=== PATIENT | female | born 1955 | race Caucasian/White ===

== ENCOUNTER 2017-01-16 13:42 | Outpatient (CLI) | payer OTHER ==
--- NOTE | 2017-01-18 08:50 | Mammography Report ---
DIGITAL BILATERAL SCREENING MAMMOGRAM: 01/16/2017 CLINICAL HISTORY: This is a 61-year-old female in for routine screening mammogram. Patient does hav e a family history of breast cancer. A grandmother had breast cancer at age 56. Patient does have b reast surgical history. Patient had a lumpectomy in 1975 for benign tumor in the right breast. COMPARISON: 08/06/2007, 08/23/2008, 09/05/2009, 12/13/2010, 12/05/2011, 08/05/2012 TECHNIQUE: Craniocaudad and oblique lateral views of each breast were obtained with [facility] digital mammography. FINDINGS: Heterogeneously dense breasts are noted bilaterally. A 1.3 cm benign fibroadenoma is once again seen in the upper outer quadrant of the right breast containing coarse calcifications within i t. Some additional scattered benign-appearing calcifications are noted in the breasts. There is a clust er of calcifications once again seen in the upper outer quadrant of the right breast. This has been noted as far back as 2010 without dramatic change. There is an asymmetrical density in the outer kolton f of the right breast measuring 0.8 cm in diameter. This is only noted on craniocaudad view. It was not seen on preceding exam from 08/05/2012. A comparable finding is not noted on oblique lateral vi ew. Recommend patient return for coned-down compression craniocaudad view of the right breast and a mediolateral view for further evaluation. If indicated, ultrasound could also be obtained. IMPRESSION: A 0.8 CM ASYMMETRICAL DENSITY WITH MILDLY IRREGULAR MARGINS IS NOTED IN THE OUTER HALF O F THE RIGHT BREAST. THIS FINDING IS ONLY NOTED ON CC VIEW AND WAS NOT SEEN ON PRECEDING EXAM. RECOM MEND PATIENT RETURN FOR ADDITIONAL VIEWS OF THE RIGHT BREAST AND POSSIBLY A RIGHT BREAST ULTRASOUND F OR FURTHER EVALUATION. BIRADS CATEGORY 0 - INCOMPLETE. NEEDS ADDITIONAL IMAGING EVALUATION. STANDARD QUALIFYING STATEMENTS 1. This examination was reviewed with the aid of Computer-Aided Detection (CAD). 2. A negative or benign imaging report should not delay biopsy if clinically suspicious findings are present. Consider surgical consultation if warranted. More than 5% of cancers are not identified by i maging. 3. Dense breasts may obscure an underlying neoplasm. JOB #: [id number] EXT JOB #:[id number]
== END 2017-01-16 13:43 | disposition home or self-care (01) ==
LOC: DI.N 13:42
PROVIDERS: ATTEND Family Medicine
DX: Z12.31 Encounter for screening mammogram for malignant neoplasm of breast (principal); R92.2 Inconclusive mammogram; Z80.3 Family history of malignant neoplasm of breast
CPT/HCPCS: 77067

== ENCOUNTER 2017-01-25 14:40 | Outpatient (CLI) | payer OTHER ==
--- NOTE | 2017-01-25 17:07 | Mammography Report ---
DIGITAL DIAGNOSTIC RIGHT MAMMOGRAM: 01/25/2017 CLINICAL INDICATION: Possible developing asymmetry outer right breast. TECHNIQUE: Right true lateral, spot compression, and repeat craniocaudal views. COMPARISON: 01/16/2017, 08/05/2012, 12/05/2011, 12/13/2010, 09/05/2009, 08/23/2008, 08/06/2007. FINDINGS: The right breast again demonstrates heterogeneously dense fibroglandular parenchyma. The questioned asymmetry dissipates on additional compression. No underlying mass lesion or architectura l distortion is appreciated. IMPRESSION: BENIGN FINDINGS. RECOMMENDATION: Routine annual screening unless otherwise clinically indicated. BI-RADS category 2, benign findings. STANDARD QUALIFYING STATEMENTS 1. This examination was reviewed with the aid of Computer-Aided Detection (CAD). 2. A negative or benign imaging report should not delay biopsy if clinically suspicious findings are present. Consider surgical consultation if warranted. More than 5% of cancers are not identified by i maging. 3. Dense breasts may obscure an underlying neoplasm. JOB #: [id number] EXT JOB #:[id number]
== END 2017-01-25 14:41 | disposition home or self-care (01) ==
LOC: DI 14:40
PROVIDERS: ATTEND Family Medicine
DX: N63 Unspecified lump in breast (principal)

== ENCOUNTER 2017-03-13 15:58 | Outpatient (CLI) | payer OTHER ==
--- NOTE | 2017-03-14 08:59 | MRI Report ---
EXAM: MRI LUMBAR SPINE WITHOUT CONTRAST EXAM DATE: 03/13/2017 05:18 PM. CLINICAL HISTORY: Spondylolisthesis, site unspecified. Chronic low back pain for years. Pain getting worse in the past month. Bilateral hip pain. Left-sided radiculopathy. COMPARISON: Lumbar spine plain films 03/05/2017. MRI of the lumbar spine 01/12/2013. TECHNIQUE: Multiplanar, multisequence T1-weighted and fluid-sensitive sequences of the lumbar spine f rom T12 to S1 without contrast. Other: None. FINDINGS: Spinal Cord: The conus terminates at L1-L2. The conus medullaris and cauda equina are unremarkable. T he lumbar spinal canal is adequate. Alignment: Mild, 3 mm, spondylotic spondylolisthesis is seen at L5-S1. Minimal, 1 mm, spondylolisthes is is seen at L4-L5. This is not significantly changed. Bone Marrow: Five cwy-ady-snezolw lumbar vertebral bodies are assumed. No gross fractures or bone les ions. No bone marrow edema. Note is made of a 9 mm hemangioma in the L1 vertebral body, unchanged. Disk Levels/Facets: T11-T12: Partially evaluated on sagittal series. Mild loss of disk space height. Mild patchy anterior diskogenic endplate signal change with Modic type I appearance. Minimal dorsal disk bulge. Mild to m oderate anterior and anterolateral protrusion of disk/osteophyte complex. No stenosis. T12-L1: Unremarkable. L1-L2: Unremarkable. L2-L3: Unremarkable. L3-L4: Mild thickening of the ligamentum flavum is noted. Minimal circumferential disk bulge. No sten osis. L4-L5: Moderate hypertrophic degenerative facet change is seen. Thickening of the ligamentum flavum i s noted. Minimal loss of disk space height with T2 hypointense disk signal. Mild circumferential disk bulge. Effacement of the thecal sac. No stenosis. L5-S1: Marked hypertrophic degenerative facet change is seen bilaterally. Grade 1 spondylotic spondyl olisthesis is seen. T2 hypointense disk signal is seen. Minimal dorsal and lateral disk bulge. Efface ment of posterior aspect of descending S1 nerve roots is seen greater on the left. This is secondary to degenerative facet change and thickened ligamentum flavum with spondylolisthesis. Mild right later al recess stenosis, moderate left lateral recess stenosis. This is not significantly changed. Musculature: Normal. No edema or fatty atrophy. Other: The partially visualized retroperitoneum is unremarkable. IMPRESSION: 1. L5-S1: Marked degenerative facet change with mild spondylolisthesis. There is underlying effacemen t and mass effect on descending S1 nerve roots. Right mild lateral recess stenosis. Left moderate lat eral recess stenosis. 2. L4-L5: Moderate degenerative facet and mild degenerative disk change. No stenosis. Comment: The following findings are so common in adults without low back pain that while we report th eir presence, they must be interpreted with caution and in the context of the clinical situation. (Re ella Hernandez et al, Spine 2001) Prevalence of findings in patients without low back pain: Disk degeneration (any evidence): 92% Disk desiccation/T2 signal loss: 83% Disk height loss: 56% Disk bulge: 64% Disk protrusion: 32% Annular tear/high intensity zone: 38% [facility] Referring Provider Line: [phone] SITE ID: [id number]
== END 2017-03-13 15:59 | disposition home or self-care (01) ==
LOC: DI 15:58
PROVIDERS: ATTEND Family Medicine
DX: M47.896 Other spondylosis, lumbar region (principal); M51.36 Other intervertebral disc degeneration, lumbar region; M47.897 Other spondylosis, lumbosacral region; M43.17 Spondylolisthesis, lumbosacral region
CPT/HCPCS: 72148

== ENCOUNTER 2018-02-10 14:38 | Outpatient (CLI) | payer OTHER ==
--- NOTE | 2018-02-12 12:08 | Mammography Report ---
Procedure Date: 02/10/2018 Accession Number: [id number] / [id number] Procedure: CRISSY - Screening Mammo Dig Bilat CPT Code: FULL RESULT: EXAM: Screening Mammo Dig Bilat DATE: 02/10/2018 2:59 PM CLINICAL HISTORY: Remote history of right breast surgery for benign tumor. TECHNIQUE: Bilateral CC and MLO views were obtained. COMPARISON: 01/25/17, 01/16/2017, 08/05/2012, 12/05/2011, 12/13/2010, 09/05/2009 FINDINGS: The breast tissue is heterogeneously dense . No suspicious masses, clustered microcalcifications, skin thickening, or regions of architectural distortion are identified. Scattered benign-appearing calcifications in both breasts have been present as remotely as 2011. No significant new findings. IMPRESSION: Benign findings RECOMMENDATION: Routine annual screening unless otherwise clinically indicated. BIRADS CATEGORY 2: Benign findings STANDARD QUALIFYING STATEMENTS: 1. This examination was reviewed with the aid of Computer-Aided Detection (CAD). 2. A negative or benign imaging report should not delay biopsy if clinically suspicious findings are present. Consider surgical consultation if warrented. More than 5% of cancers are not identified by imaging. 3. Dense breasts may obscure an underlying neoplasm.
== END 2018-02-10 14:39 | disposition home or self-care (01) ==
LOC: DI 14:38
PROVIDERS: ATTEND Family Medicine
DX: Z12.31 Encounter for screening mammogram for malignant neoplasm of breast (principal)
CPT/HCPCS: 77067

== ENCOUNTER 2018-06-06 08:00 | Outpatient (CLI) | payer OTHER | END 2018-06-06 08:01 | disposition home or self-care (01) | LOC: LAB.R 08:00 | PROVIDERS: ATTEND Family Medicine | DX: R30.0 Dysuria (principal) | CPT/HCPCS: 87086 ==

== ENCOUNTER 2018-12-04 12:21 | Outpatient (CLI) | payer OTHER ==
[2018-12-04 19:21] LABS: BASOPHILS # (AUTO) 0.1 10^3/uL (0.0-0.1); BASOPHILS % (AUTO) 0.9 %; EOSINOPHILS # (AUTO) 0.2 10^3/uL (0.0-0.7); EOSINOPHILS % (AUTO) 3.1 %; HGB - HEMOGLOBIN 12.4 g/dL (12.0-16.0); LYMPHOCYTES # (AUTO) 2.4 10^3/uL (1.5-3.5); MEAN CORPUSCULAR HEMOGLOBIN 30.6 pg (27.0-31.0); MEAN CORPUSCULAR VOLUME 92.7 fL (81.0-99.0); MEAN PLATELET VOLUME 9.4 fL (7.9-10.8); MONOCYTES # (AUTO) 0.5 10^3/uL (0.0-1.0); MONOCYTES % (AUTO) 8.2 %; NEUTROPHILS # (AUTO) 3.1 10^3/uL (1.5-6.6); NEUTROPHILS % (AUTO) 49.8 %; PLT - PLATELET COUNT 265 10^3/uL (130-450); RED BLOOD COUNT 4.07 10^6/uL (4.20-5.40); RED CELL DISTRIBUTION WIDTH 13.7 % (12.0-15.0); WHITE BLOOD COUNT 6.2 x10^3/uL (4.8-10.8)
[2018-12-04 20:57] LABS: ALBUMIN 4.7 g/dL (3.2-5.5); ALBUMIN/GLOBULIN RATIO 1.5 (1.0-2.2); ALKALINE PHOSPHATASE 51 IU/L (42-121); ALT ALANINE AMINOTRANSFERASE 17 IU/L (10-60); AST ASPARTATE AMINOTRANSFERASE 23 IU/L (10-42); BILIRUBIN,TOTAL 0.5 mg/dL (0.2-1.0); BUN - BLOOD UREA NITROGEN 15 mg/dL (6-20); CALCIUM 9.9 mg/dL (8.5-10.3); CARBON DIOXIDE - CO2 28 mmol/L (21-32); CHLORIDE 104 mmol/L (101-111); CHOL/HDL RATIO 3.3 (<4.4); CHOLESTEROL 253 mg/dL; CREATININE 0.5 mg/dL (0.4-1.0); GFR - MDRD 124 (>89); GLUCOSE 82 mg/dL (70-100); HDL CHOLESTEROL 76 mg/dL; LDL CHOLESTEROL,CALCULATED 148 mg/dL; LDL/HDL RATIO 1.9 (<4.4); SODIUM 139 mmol/L (135-145); TOTAL PROTEIN 7.8 g/dL (6.7-8.2); VLDL CHOLESTEROL 29 mg/dL
[2018-12-04 21:23] LABS: HB2 TOTAL 13.6 g/dL; HEMOGLOBIN A1C 0.53 g/dL; HEMOGLOBIN A1C % 5.7 % (4.6-6.2)
== END 2018-12-04 12:22 | disposition home or self-care (01) ==
LOC: LAB.WCP 12:21
PROVIDERS: ATTEND Family Medicine
DX: Z00.00 Encounter for general adult medical examination without abnormal findings (principal); I10 Essential (primary) hypertension; Z13.220 Encounter for screening for lipoid disorders
CPT/HCPCS: 36415; 80050; 80061; 83036; 83721

== ENCOUNTER 2019-05-13 08:00 | Outpatient (CLI) | payer MEDICARE, OTHER ==
--- NOTE | 2019-05-13 16:00 | XRAY Report ---
Reason: CHRONIC COUGH Procedure Date: 05/13/2019 Accession Number: [id number] / [id number] Procedure: WCP - Chest 2 View X-Ray CPT Code: 40330 FULL RESULT: EXAM: CHEST RADIOGRAPHY EXAM DATE: 05/13/2019 03:00 PM. CLINICAL HISTORY: CHRONIC COUGH. COMPARISON: RIBS 2 VIEW RT 04/15/2018 3:13 PM CERVICAL SPINE 2 VIEW 05/06/2017 2:46 PM. TECHNIQUE: 2 views. FINDINGS: Lungs/Pleura: Faint nodular density left apex adjacent to the second anterior rib. No other focal opacities evident. No pleural effusion. No pneumothorax. Normal volumes. Mediastinum: Heart and mediastinal contours are unremarkable. Other: Surgical clips right upper quadrant. Postsurgical changes in the spine. IMPRESSION: Faint nodular density left apex. Suggest apical lordotic projection. Otherwise clear lungs. [facility]
== END 2019-05-13 23:59 | disposition home or self-care (01) ==
LOC: DI.WCP 08:00 → EDSTATUS 13:39 → DI.WCP 23:59
PROVIDERS: ATTEND Family Medicine
DX: R91.8 Other nonspecific abnormal finding of lung field (principal)
CPT/HCPCS: 71046

== ENCOUNTER 2019-05-14 14:12 | Outpatient (CLI) | payer MEDICARE, OTHER ==
--- NOTE | 2019-05-14 16:48 | XRAY Report ---
Reason: LEFT UPPER LOBE PULMONARY NODULE Procedure Date: 05/14/2019 Accession Number: [id number] / [id number] Procedure: WCP - Chest 1 View X-Ray CPT Code: 13913 FULL RESULT: EXAM: CHEST RADIOGRAPHY EXAM DATE: 05/14/2019 02:12 PM. CLINICAL HISTORY: LEFT UPPER LOBE PULMONARY NODULE. COMPARISON: CHEST 2 VIEW 05/13/2019 2:42 PM. TECHNIQUE: 1 apical lordotic view. FINDINGS: Persistent faint 1 cm nodular density left apex. Lungs otherwise clear. Suggest noncontrast chest CT for further evaluation. IMPRESSION: Persistent left apical nodule. Suggest noncontrast chest CT.. [facility]
== END 2019-05-14 23:59 | disposition home or self-care (01) ==
LOC: DI.WCP 14:12
PROVIDERS: ATTEND Family Medicine
DX: R91.1 Solitary pulmonary nodule (principal)
CPT/HCPCS: 71045

== ENCOUNTER 2019-05-15 15:00 | Outpatient (CLI) | payer MEDICARE, OTHER ==
--- NOTE | 2019-05-15 17:12 | CT Report ---
Reason: PULMONARY NODULE LEFT UPPER LOBE Procedure Date: 05/15/2019 Accession Number: [id number] / [id number] Procedure: CT - CHEST WO CPT Code: FULL RESULT: EXAM: CT CHEST EXAM DATE: 05/15/2019 04:00 PM. CLINICAL HISTORY: Pulmonary nodule COMPARISONS: CHEST 1 VIEW 05/14/2019 1:54 PM. TECHNIQUE: Routine helical CT imaging was performed through the chest. IV contrast: None. Reconstructions: Coronal and sagittal. In accordance with CT protocol optimization, one or more of the following dose reduction techniques were utilized for this exam: automated exposure control, adjustment of mA and/or KV based on patient size, or use of iterative reconstructive technique. FINDINGS: Lungs/Pleura: There is no consolidation or effusion. No suspicious noncalcified nodules are seen. There is no evidence of subpleural reticulation or architectural distortion. No central airway abnormalities. No pneumothorax. Mediastinum: Normal. No adenopathy or masses. The heart and great vessels are normal. Bones: Unremarkable. Visualized Abdomen: The gallbladder is surgically absent. There is fatty replacement of the pancreas. No acute abnormalities are seen. Other: None. IMPRESSION: 1. No acute or chronic pulmonary CT process. 2. No CT evidence of left upper lobe nodule. 3. Normal heart size. [facility] The call report notification system was initiated by Dr. Munir Perkins at 05:11 PM on 05/15/2019.
== END 2019-05-15 15:01 | disposition home or self-care (01) ==
LOC: DI 15:00
PROVIDERS: ATTEND Family Medicine
DX: R91.1 Solitary pulmonary nodule (principal)
CPT/HCPCS: 71250

== ENCOUNTER 2019-07-14 14:54 | Outpatient (CLI) | payer MEDICARE, OTHER ==
--- NOTE | 2019-07-15 14:31 | XRAY Report ---
Reason: ARTHRITIS,LT KNEE,PATELLO-FEMORAL SYNDROME Procedure Date: 07/14/2019 Accession Number: [id number] / [id number] Procedure: XR - Knee 3 View LT CPT Code: Final Report FULL RESULT: EXAM: LEFT KNEE RADIOGRAPHY EXAM DATE: 07/14/2019 03:11 PM HISTORY: Arthritis, lt KNEE,PATELLO-FEMORAL SYNDROME COMPARISON: None TECHNIQUE: AP, lateral and Merchant, 3 views including weightbearing FINDINGS: Moderate medial tibiofemoral compartment narrowing seen along with moderate to large medial osteophyte formation. There also is evidence of subchondral sclerosis medially. Lateral joint space is preserved. Mild spurring noted at the patellofemoral joint laterally and moderate to large spurring seen medially. Trochlear facet ratio is greater than 50%. Medial patellar facet is diminutive. Small joint effusion. Normal soft tissues. 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 Mild to moderate patellofemoral osteoarthritis, greater medially. [facility]
== END 2019-07-14 14:55 | disposition home or self-care (01) ==
LOC: DI 14:54
PROVIDERS: ATTEND Family Medicine
DX: M17.12 Unilateral primary osteoarthritis, left knee (principal)

== ENCOUNTER 2020-01-07 08:00 | Outpatient (CLI) | payer MEDICARE, OTHER ==
[2020-01-07 13:26] LABS: BASOPHILS % (AUTO) 0.4 %; EOSINOPHILS # (AUTO) 0.2 10^3/uL (0.0-0.7); EOSINOPHILS % (AUTO) 2.4 %; HGB - HEMOGLOBIN 11.7 g/dL (12.0-16.0); LYMPHOCYTES # (AUTO) 2.4 10^3/uL (1.5-3.5); LYMPHOCYTES % (AUTO) 36.3 %; MEAN CORPUSCULAR HEMOGLOBIN 30.8 pg (27.0-31.0); MEAN CORPUSCULAR HGB CONC 32.9 g/dL (32.0-36.0); MEAN CORPUSCULAR VOLUME 93.7 fL (81.0-99.0); MEAN PLATELET VOLUME 10.8 fL (7.9-10.8); MONOCYTES # (AUTO) 0.5 10^3/uL (0.0-1.0); NEUTROPHILS # (AUTO) 3.6 10^3/uL (1.5-6.6); NEUTROPHILS % (AUTO) 53.5 %; PLT - PLATELET COUNT 282 10^3/uL (130-450); RED CELL DISTRIBUTION WIDTH 12.7 % (12.0-15.0); WHITE BLOOD COUNT 6.7 x10^3/uL (4.8-10.8)
[2020-01-07 13:38] LABS: ALBUMIN 4.2 g/dL (3.2-5.5); ALBUMIN/GLOBULIN RATIO 1.5 (1.0-2.2); ALKALINE PHOSPHATASE 60 IU/L (42-121); ALT ALANINE AMINOTRANSFERASE 17 IU/L (10-60); AST ASPARTATE AMINOTRANSFERASE 19 IU/L (10-42); BILIRUBIN,TOTAL 0.7 mg/dL (0.2-1.0); BUN - BLOOD UREA NITROGEN 19 mg/dL (6-20); CALCIUM 9.5 mg/dL (8.5-10.3); CARBON DIOXIDE - CO2 27 mmol/L (21-32); CHLORIDE 102 mmol/L (101-111); CHOL/HDL RATIO 3.6 (<4.4); CHOLESTEROL 243 mg/dL; CREATININE 0.7 mg/dL (0.4-1.0); GLUCOSE 99 mg/dL (70-100); HDL CHOLESTEROL 68 mg/dL; LDL CHOLESTEROL,CALCULATED 157 mg/dL; LDL/HDL RATIO 2.3 (<4.4); SODIUM 136 mmol/L (135-145); VLDL CHOLESTEROL 18 mg/dL
== END 2020-01-07 23:59 | disposition home or self-care (01) ==
LOC: LAB.WCP 08:00
PROVIDERS: ATTEND Registered Nurse
DX: I10 Essential (primary) hypertension (principal); K21.9 Gastro-esophageal reflux disease without esophagitis; E66.9 Obesity, unspecified
CPT/HCPCS: 36415; 80053; 80061; 83721; 84443; 85025

== ENCOUNTER 2020-01-17 07:00 | Outpatient (CLI) | payer MEDICARE, OTHER | END 2020-01-17 23:59 | disposition home or self-care (01) | LOC: LAB.R 07:00 | PROVIDERS: ATTEND Registered Nurse | DX: D64.9 Anemia, unspecified (principal) | CPT/HCPCS: 82274 ==

== ENCOUNTER 2020-02-25 09:55 | Day surgery (SDC) | payer MEDICARE, OTHER ==
[2020-02-25] MEDS ORDERED: MIDAZOLAM 2 MG/2 ML VIAL IVP ONE (09:56)
[2020-02-25] MEDS ORDERED: fentaNYL 250 MCG/5 ML VIAL IVP ONE (09:56)
[2020-02-25] MEDS ORDERED: ONDANSETRON 4 MG/2 ML VIAL IVP ONE (09:56)
[2020-02-25] MEDS ORDERED: LACTATED RINGERS 1,000 ML IV ONE (10:26)
[2020-02-25] MEDS ORDERED: LIDO GARGLE 30 ML BOTTLE ONE (12:24)
[2020-02-25] MEDS ORDERED: BENZOCAINE/TETRACAINE/BUTAMBEN 20 GM TOP ONE (12:46)
[2020-02-25] MEDS ORDERED: LIDO GARGLE 30 ML BOTTLE TOP ONE (12:46)
[2020-02-25 13:48] VITALS: BP 124/67
== END 2020-02-25 09:56 | disposition home or self-care (01) ==
LOC: SDS 09:55
PROVIDERS: ATTEND Surgery
PROC: 0DB68ZX Excision of Stomach, Via Natural or Artificial Opening Endoscopic, Diagnostic (ICD-10-PCS; 2020-02-25)
PROC: 0DB48ZX Excision of Esophagogastric Junction, Via Natural or Artificial Opening Endoscopic, Diagnostic (ICD-10-PCS; 2020-02-25)
PROC: 0DBE8ZX Excision of Large Intestine, Via Natural or Artificial Opening Endoscopic, Diagnostic (ICD-10-PCS; principal; 2020-02-25 11:45)
PROC: 0DB98ZX Excision of Duodenum, Via Natural or Artificial Opening Endoscopic, Diagnostic (ICD-10-PCS; 2020-02-25 11:45)
DX: R10.13 Epigastric pain (principal); K64.8 Other hemorrhoids; K57.30 Diverticulosis of large intestine without perforation or abscess without bleeding; K21.9 Gastro-esophageal reflux disease without esophagitis; R19.7 Diarrhea, unspecified; R10.32 Left lower quadrant pain; K59.00 Constipation, unspecified; I10 Essential (primary) hypertension; E66.9 Obesity, unspecified; Z68.32 Body mass index [BMI] 32.0-32.9, adult
CPT/HCPCS: 43239; 45380; A9270; J3010; J7120

== ENCOUNTER 2020-03-17 13:36 | Outpatient (CLI) | payer MEDICARE, OTHER ==
[2020-03-17 14:40] VITALS: BP 130/70
--- NOTE | 2020-03-17 14:40 | SLEEP CARE CONSULTATION ---
Information from patient questionnaire entered by Alyson Goncalves. I have reviewed and concur with the information entered by Alyson Goncalves. This document represents the service I personally performed and the decisions made by me, Gabriella Lloyd ARNP. History of Present Illness Service Date and Time: 03/17/2020 1336 Reason for Visit: New patient Chief Complaint: reports: Unrefreshed sleep, Snoring, Excessive daytime sleepiness, Fatigue, Frequent awakenings at night. denies: Insomnia, Observed pauses in breathing Duration of Symptoms: years Usual bedtime: 2129 Time it takes to fall asleep: 6-10 minutes Snores at night: Yes Observed to quit breathing while asleep: No Sleeps alone due to snoring: No (single) Number of times waking at night: 5-8+ Reasons for waking at night: reports: Snoring, Pain, Bathroom. denies: Choking, Gasping for air Toss, Turn, or Twitch while sleeping: Yes Recalls having dreams: Yes (sometimes) Usually gets out of bed at: 0400; shift changing to be at work at 3 AM; normal shift is 5 AM Feels refreshed in the morning: No Morning headache: Yes (couple hours to all day; gets migraines too) Sleepy or fatigued during the day: Yes Ever fallen asleep while driving: Yes Takes day naps: Yes (many times after work 1-2 hours at a time) Dreams during day naps: No Prior sleep studies: Yes Year and Where: probably 5 years ago and diagnosed with sleep apnea; [facility] [place] Additional HPI information: She did have a sleep study done about 5 years ago and was diagnosed with FRANNY. They started her on CPAP therapy. The mask was too "big and clunky", the hose got in the way, and she had trouble with side sleeping with the mask. She just stopped using it. She did try to follow up but was struggling with alcoholism with drug addiction (Vicodin and Tramadol taken for chronic back pain) and this interfered with her treatment and follow up. She has been clean and sober now for 1 a year. She continues to have back pain and knee pain which is being managed with PRN Aleve. She works for [employer] and usually has to work at 5 AM, she averages 5-6 hours of sleep a night with multiple awakenings. She will be having to go to work at 3 AM soon, getting up at 2 AM. She states she is always fatigued and does take a 1-2 hour nap after getting home from work. - Parasomnia Symptoms Ever been unable to move upon waking from sleep: No Walks in sleep: No Talks in sleep: No Ever acted out dreams in sleep: No Ever felt weak in the knees when startled or emotional: No Bothered by creepy, crawly, restless sensations in legs: Yes (gets when awake as well, jerking movements of legs) Problems with memory or concentration: No Subjective Initial [place] Sleepiness Scale score: 10 Past Medical History Past Medical History: reports: Hypertension, Arthritis, Asthma (mild), GERD, Other (chronic pain in back and left knee). denies: Claustrophobia, Congestive Heart Failure, Diabetes, Stroke, Coronary Heart Disease, Arrythmia, Anemia, Anxiety, Depression, Mood disorder Social History The patient's occupation is a [employer]AM. Patient is Single and lives in [place]. Have you smoked in the past 12 months: No Alcohol use: No Alcohol amount and frequency: clean and sober for last year Caffeine use: Yes Caffeine amount and frequency: 1 cup Family History Family history of sleep disordered breathing: Yes Family Hx Sleep Apnea: Father: Snoring, Sibling: Snoring Allergies and Home Medications Drug allergies reviewed: Yes (codiene) Home medication list reviewed: Yes Allergy and home medication list: Losartan potassium nadolol methocarbamol Aleve, prn Advair disc Review of Systems Weight gain over past 5 years: 20 Cardiovascular: reports: high blood pressure, leg or foot swelling. denies: palpitations, chest pain, irregular heart rate or pulse, have to sleep sitting up Respiratory: denies: shortness of breath, wheeze, chronic cough Gastrointestinal: reports: heartburn (had endoscopy 2 weeks ago, starting prilosec this week), nausea, diarrhea, abdominal pain. denies: difficulty swallowing Urinary: denies: incontinence, frequency, urgency, impotence, other Neurological: reports: headaches, gait or balance problems. denies: seizure, head trauma Psychiatric: denies: Attention Deficit Hyperactivity, anxiety, depression, mood disorder, claustrophobia Ear/Nose/Throat: reports: nasal congestion, sinus problems (allergies; sinus headaches a lot), dry mouth/throat (most mornings; drink liquids and this helps), tonsillectomy. denies: nose bleeds, hoarseness, injury to nose, wisdom teeth removed Endocrine: reports: sluggishness, too hot or cold. denies: thyroid disease, excessive thirst, increased appetite Musculoskeletal: reports: joint pain, back pain Immunologic: reports: sneezing, allergies to food or environment (seasonal) Physical Exam Blood Pressure: 130/70 Cuff size: long Heart Rate: 100 (patient feeling nervous) O2 Saturation: 99 Height: 5 ft 7 in Weight: 201 lb 12.8 oz Body Mass Index: 31.6 BMI Classification: Obese Neck circumference: 15 HEENT: No craniofacial malformation Nostrils: patent to airflow Turbinates: normal Septum: midline Mouth and throat: normal Soft palate: normal Hard palate: normal Uvula: normal Uvula visualization: 50% Mallampati Class II Tongue: normal in size Tonsils: absent bilaterally Chin and jaw: normal size and position Neck: normal w/o lymphadenopathy or thyromegaly Heart: regular rate and rhythm Lungs: clear bilaterally Impression and Plan 1. Obstructive Sleep Apnea-Hypopnea Syndrome, as previously diagnosed. She had difficulty with ill fitting mask problems as well as was struggling with addictions to alcohol and drugs which caused her to stop using the CPAP. She has since become clean and sober for the last year and needs a reevaluation before restarting of therapy. She continues to snore loudly waking herself up, she has morning headaches often, frequent awakening during the night, unrefreshed sleep, and excessive daytime sleepiness. 1. Obesity. We reviewed that a narrow oropharynx and obesity are common predisposing factors for obstructive sleep apnea-hypopnea syndrome. Patient BMI of 31.6 with 20 pound weight gain in last 5 years. Obesity increases the risk of apnea, CPAP pressure requirements and overall health risks especially cardi ovascular and diabetes. Thus patient is advised to lose weight. The BMI chart was reviewed. I recommend proceeding to polysomnography to confirm the diagnosis and to assess severity. I informed the patient of what the sleep studies involve and after some discussion, obtained agreement to proceed. The pathophysiology of obstructive sleep apnea-hypopnea syndrome was discussed with the patient and health risks of cardiovascular and cerebrovascular disease if not treated. Risks of drowsy driving discussed in detail and patient advised to avoid long distance driving and to chain puller at the first sign of drowsiness. Patient agreed to plan. [facility] drowsy driving brochure given. * Schedule polysomnography. * Avoid long distance driving or driving when feeling sleepy. * Attempt to lose weight. * Review instructions provided by trained office staff on how to prepare for the sleep study. * Return for follow-up after sleep study completed to discuss result and initiate therapy if needed. Visit Type: In Office Provider Statement: I spent 100% of the Face to Face Visit with the patient with greater than 50% spent counseling the patient and coordination of care.
== END 2020-03-17 13:37 | disposition home or self-care (01) ==
LOC: SC 13:36
PROVIDERS: ATTEND Nurse Practitioner Family
DX: G47.33 Obstructive sleep apnea (adult) (pediatric) (principal); E66.9 Obesity, unspecified; Z68.31 Body mass index [BMI] 31.0-31.9, adult
CPT/HCPCS: 99204; G0463; 99212

== ENCOUNTER 2020-04-12 14:36 | Emergency (ER) | payer MEDICARE, OTHER ==
--- NOTE | 2020-04-12 15:02 | ED Physician Documentation ---
History of Present Illness - Stated complaint Stated Complaint: FEVER/STOMACH PX - Chief complaint Chief Complaint: Abd Pain - History obtained from History obtained from: Patient - History of Present Illness Timing: Prior to arrival, How many hours ago (12) Pain level max: 8 Pain level now: 5 - Additonal information Additional information: 65-year-old female presents to the emergency department for chief complaint of left lower quadrant abdominal pain. She reports that she was woken up last night with the abdominal pain and this morning she began having diarrhea. She reports 4 watery stools today all nonbloody. Last month she did have a colonoscopy completed and she reports to me that she was diagnosed with diverticulosis. She has no history of diverticulitis. She also reports that this afternoon she felt sweaty and clammy and took her temperature and she was 100.2. She has had no vomiting but she does endorse nausea. No cough or congestion. Denies chest pain or shortness of breath. Past medical history includes hypertension for which she takes losartan and nadolol. Surgical history includes total abdominal hysterectomy and open cholecystectomy. Review of Systems Constitutional: reports: Fever, Chills. denies: Myalgias Eyes: reports: Loss of vision, Decreased vision Nose: reports: Rhinorrhea / runny nose. denies: Congestion, Epistaxis Throat: denies: Dental pain / toothache Cardiac: denies: Chest pain / pressure, Palpitations Respiratory: denies: Dyspnea GI: reports: Abdominal Pain, Nausea, Diarrhea. denies: Vomiting, Constipation, Hematemesis, Bloody / black stool : denies: Dysuria, Frequency, Hesitancy, Unable to Void, Hematuria Skin: denies: Rash, Lesions Musculoskeletal: denies: Neck pain, Back pain Neurologic: denies: Generalized weakness, Focal weakness, Numbness, Syncope, Seizure, Headache, Head injury Psychiatric: denies: Depressed, Suicidal PD PAST MEDICAL HISTORY - Past Medical History Cardiovascular: Hypertension Respiratory: None Endocrine/Autoimmune: None GI: GERD : None HEENT: None Psych: None Musculoskeletal: Osteoarthritis, Chronic back pain Derm: None - Past Surgical History General: Cholecystectomy, Colonoscopy /YARD ASSOCIATE: Hysterectomy, Other - Present Medications Home Medications: Ambulatory Orders Medication Instructions Recorded Confirmed Losartan [Cozaar] 75 mg PO DAILY 12/12/15 12/12/15 Nadolol 20 mg PO 02/24/20 methocarbamoL [Methocarbamol] 750 mg PO 02/24/20 Ondansetron Odt [Zofran] 4 mg TL Q6H PRN #10 tablet 04/12/20 - Allergies Allergies/Adverse Reactions: Allergies Allergy/AdvReac Type Severity Reaction Status Date / Time codeine AdvReac Rash Verified 12/12/15 14:32 PD ED PE NORMAL - General General: Alert and oriented X 3, No acute distress, Well developed/nourished - HEENT HEENT: Atraumatic, PERRL, EOMI, Moist mucous membranes - Neck Neck: Supple, no meningeal sign, No adenopathy - Cardiac Cardiac: RRR, No murmur, Strong equal pulses - Respiratory Respiratory: No respiratory distress, Clear bilaterally - Abdomen Abdomen: Normal bowel sounds, Soft, Non distended. 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, No motor deficit, No sensory deficit Results - Vitals Vitals: Vital Signs - 24 hr 04/12/20 04/12/20 14:44 14:59 Temperature 37.0 C 37.4 C Heart Rate 95 88 Respiratory 18 14 Rate Blood Pressure 158/60 H 169/81 H O2 Saturation 95 97 Oxygen O2 Source Room air - Labs Labs: Laboratory Tests 04/12/20 04/12/20 04/12/20 14:55 14:55 15:10 WBC 9.2 RBC 3.90 L Hgb 12.5 Hct 36.2 L MCV 92.8 MCH 32.1 H MCHC 34.5 RDW 12.5 Plt Count 231 MPV 10.1 Neut # (Auto) 7.6 H Lymph # (Auto) 1.1 L [place] # (Auto) 0.5 Eos # (Auto) 0.1 Baso # (Auto) 0.0 Absolute Nucleated RBC 0.00 Nucleated RBC % 0.0 Sodium 133 L Potassium 3.9 Chloride 98 L Carbon Dioxide 25 Anion Gap 10.0 BUN 11 Creatinine 0.5 Estimated GFR (MDRD) 123 Glucose 103 H Calcium 9.1 Total Bilirubin 0.8 AST 19 ALT 17 Alkaline Phosphatase 57 Total Protein 7.4 Albumin 4.4 Globulin 3.0 Albumin/Globulin Ratio 1.5 Lipase 44 Urine Color YELLOW Urine Clarity CLEAR Urine pH 5.5 Ur Specific [place] <=1.005 Urine Protein NEGATIVE Urine Glucose (UA) NEGATIVE Urine Ketones NEGATIVE Urine Occult Blood NEGATIVE Urine Nitrite NEGATIVE Urine Bilirubin NEGATIVE Urine Urobilinogen 0.2 (NORMAL) Ur Leukocyte Esterase TRACE H Urine RBC NONE Urine WBC 4-5 Ur Squamous Epith Cells NONE SEEN Urine Bacteria None Seen Urine Mucus Few Strands Ur Microscopic Review INDICATED Urine Culture Comments INDICATED - Rads (name of study) CT abd Radiology: Final report received (Fluid-filled small bowel loops consistent with gastroenteritis. Trace amount of free fluid within the pelvis, presumably reactive. Normal appendix.) PD MEDICAL DECISION MAKING - ED course Complexity details: reviewed results, re-evaluated patient, considered differential, d/w patient ED course: 65-year-old female presented to the emergency department for evaluation of left lower quadrant abdominal pain and diarrhea. She did report a home fever of 100.2. - She had reported a history of diverticulosis and given the fever and diarrhea we proceeded with CT scanning to rule out acute diverticulitis. The CT scan shows fluid-filled small bowel loops most consistent with gastroenteritis. This also fits the picture of diarrhea and her fevers. - On her laboratory findings there is no leukocytosis. Her urine shows no signs of infection. - She was given some Zofran and Toradol in the clinic which helped resolve her nausea and her pain. - At this time she appears very well and is heme hemodynamically stable and she does request to be discharged home. We did discuss routine treatment of gastroenteritis to include fluids broths and clear liquids at home. Emergent return precautions were discussed for fevers that persist, failure of abdominal pain to resolve, any bloody diarrhea or worsening symptoms. Departure - Departure Disposition: Home, Self Care Clinical Impression: Diarrhea Qualifiers: Diarrhea type: unspecified type Qualified Code(s): R19.7 - Diarrhea, unspecified Fever Qualifiers: Fever type: unspecified Qualified Code(s): R50.9 - Fever, unspecified Abdominal pain Qualifiers: Abdominal location: lower abdomen, unspecified Qualified Code(s): R10.30 - Lower abdominal pain, unspecified Condition: Stable Record reviewed to determine appropriate education?: Yes Instructions: Gastroenteritis Viral Ch Follow-Up: Mark Bell MD [Primary Care Provider] - Prescriptions: Ondansetron Odt [Zofran] 4 mg TL Q6H PRN #10 tablet PRN Reason: Nausea / Vomiting Comments: Lilian the CT scan of your abdomen showed that you most likely have gastroenteritis or the mild stomach flu. Reassuringly it did not show signs of appendicitis or diverticulitis. At this time I would recommend that you drink plenty of fluids at home. I recommend soups, broths, water or electrolyte drinks mixed 50-50 with water. If at any time you feel that your symptoms are worsening, your fevers persist, you have bloody diarrhea or feel that your are not improving in any way then please return to the emergency department for a second look
[2020-04-12 15:04] LABS: BASOPHILS % (AUTO) 0.3 %; EOSINOPHILS # (AUTO) 0.1 10^3/uL (0.0-0.7); EOSINOPHILS % (AUTO) 0.7 %; HGB - HEMOGLOBIN 12.5 g/dL (12.0-16.0); LYMPHOCYTES # (AUTO) 1.1 10^3/uL (1.5-3.5); LYMPHOCYTES % (AUTO) 11.5 %; MEAN CORPUSCULAR HEMOGLOBIN 32.1 pg (27.0-31.0); MEAN CORPUSCULAR HGB CONC 34.5 g/dL (32.0-36.0); MEAN CORPUSCULAR VOLUME 92.8 fL (81.0-99.0); MEAN PLATELET VOLUME 10.1 fL (7.9-10.8); MONOCYTES # (AUTO) 0.5 10^3/uL (0.0-1.0); MONOCYTES % (AUTO) 5.5 %; NEUTROPHILS # (AUTO) 7.6 10^3/uL (1.5-6.6); NEUTROPHILS % (AUTO) 81.8 %; PLT - PLATELET COUNT 231 10^3/uL (130-450); RED CELL DISTRIBUTION WIDTH 12.5 % (12.0-15.0); WHITE BLOOD COUNT 9.2 x10^3/uL (4.8-10.8)
[2020-04-12] MEDS: KETOROLAC 30 MG/ML VIAL IVP STA (15:07)
[2020-04-12] MEDS: ONDANSETRON 4 MG/2 ML VIAL IVP STA (15:07)
[2020-04-12] MEDS: SODIUM CHLORIDE 0.9% 1,000 ML IV STA (15:07)
[2020-04-12 15:14] LABS: BILIRUBIN,URINE NEGATIVE (NEGATIVE); GLUCOSE, URINE (UA) NEGATIVE (NEGATIVE); KETONES,URINE (UA) NEGATIVE (NEGATIVE); LEUKOCYTE ESTERASE, URINE TRACE (NEGATIVE); NITRITE,URINE NEGATIVE (NEGATIVE); OCCULT BLOOD,URINE NEGATIVE (NEGATIVE); PH,URINE 5.5 PH (5.0-7.5); PROTEIN,URINE NEGATIVE (NEGATIVE); UROBILINOGEN,URINE 0.2 (NORMAL) E.U./dL (NORMAL)
[2020-04-12 15:16] LABS: CLARITY,URINE CLEAR (CLEAR)
[2020-04-12 15:22] LABS: ALBUMIN 4.4 g/dL (3.2-5.5); ALBUMIN/GLOBULIN RATIO 1.5 (1.0-2.2); BILIRUBIN,TOTAL 0.8 mg/dL (0.2-1.0); CALCIUM 9.1 mg/dL (8.5-10.3); CREATININE 0.5 mg/dL (0.4-1.0); TOTAL PROTEIN 7.4 g/dL (6.7-8.2)
[2020-04-12] MEDS ORDERED: IOVERSOL 320 100 ML VIAL IVP ONE (15:25)
[2020-04-12 15:28] LABS: BACTERIA,URINE None Seen /HPF (None Seen); SQUAMOUS EPITHELIAL CELL,UR NONE SEEN (<= Few)
[2020-04-12 15:29] LABS: MUCUS,URINE Few Strands
--- NOTE | 2020-04-12 15:54 | CT Report ---
PROCEDURE: Abdomen/Pelvis W INDICATIONS: LLQ pain; hx of diverticulosis CONTRAST: IV CONTRAST: Optiray 320 ml: 100 PO CONTRAST: *NO PO CONTRAST TECHNIQUE: After the administration of IV contrast, 5 mm thick sections acquired from the diaphragms to the symp hysis. 5 mm thick coronal and sagittal reformats were acquired. For radiation dose reduction, the f ollowing was used: automated exposure control, adjustment of mA and/or kV according to patient size. COMPARISON: None. FINDINGS: Image quality: Excellent. ABDOMEN: Lung bases: Lung bases are clear. Heart size is normal. Solid organs: Liver and spleen are normal in size and enhancement. Gallbladder is surgically absent Biliary system is non dilated. Pancreas demonstrates fatty atrophy of the head and neck, and other erickson enhances normally. No adrenal nodules. Kidneys demonstrate normal size and enhancement, withou t hydronephrosis. Peritoneum and bowel: Small hiatal hernia. Bowel loops demonstrate normal wall thickness and caliber . There are multiple fluid-filled small bowel loops present. Appendix is within normal limits no evid ence of appendicitis. No pneumoperitoneum. Trace free fluid within the pelvis. Nodes and vessels: No retroperitoneal or mesenteric adenopathy by size criteria. Aorta and inferior vena cava are normal in size. Miscellaneous: No ventral hernias. PELVIS: Genitourinary: Bladder wall thickness is normal. Miscellaneous: No inguinal hernias or adenopathy. Bones: No suspicious bony lesions. No vertebral body compression fractures. L4 S1 fusion hardware is present. IMPRESSION: 1. Fluid-filled small bowel loops, consistent with gastroenteritis. Trace amount of free fluid within the pelvis, presumably reactive. 2. Normal appendix. Reviewed by: Rohit Greer MD on 04/12/2020 3:52 PM PDT Approved by: Rohit Greer MD on 04/12/2020 3:52 PM PDT Station ID: [id number]
[2020-04-12] MEDS: IOVERSOL 320 100 ML VIAL IVP ONE (15:57)
[2020-04-12 16:27] VITALS: BP 135/71
== END 2020-04-12 16:34 | disposition home or self-care (01) ==
LOC: ED 14:36
DX: R10.32 Left lower quadrant pain (principal); R19.7 Diarrhea, unspecified; R50.9 Fever, unspecified; R11.0 Nausea; K57.30 Diverticulosis of large intestine without perforation or abscess without bleeding; I10 Essential (primary) hypertension
CPT/HCPCS: 36415; 74177; 80053; 81001; 83690; 85025; 87086; 96361; 96374; 99284; Q9967; 81003

== ENCOUNTER 2020-05-08 19:27 | Outpatient (CLI) | payer MEDICARE, OTHER | END 2020-05-08 19:28 | disposition home or self-care (01) | LOC: SC 19:27 | PROVIDERS: ATTEND Nurse Practitioner Family | DX: G47.33 Obstructive sleep apnea (adult) (pediatric) (principal); G47.61 Periodic limb movement disorder | CPT/HCPCS: 95810 ==

== ENCOUNTER 2020-05-13 07:58 | Outpatient (CLI) | payer MEDICARE, OTHER ==
--- NOTE | 2020-05-13 08:27 | SLEEP CARE CONSULTATION ---
Information from patient questionnaire entered by Carmen Howell. I have reviewed and concur with the information entered by Carmen Howell. This document represents the service I personally performed and the decisions made by , Gabriella Lloyd ARNP. History of Present Illness Service Date and Time: 05/13/2020 0758 Initial [place] Sleepiness Scale score: 10 (in 2020) Current [place] Sleepiness Scale score: 11 Additional HPI information: PO ROMERO returns for follow up and results of the recently performed polysomnography. Her results revealed mild obstructive sleep apnea with an average AHI of 10.4 and a ana oxygen saturation of 87%. I explained the pathophysiology behind obstructive sleep apnea. We then spent quite a bit of time discussing different treatment options. For mild obstructive sleep apnea, surgery and oral appliance are alternatives to nasal CPAP therapy but in moderate or severe cases, nasal CPAP is the most effective and reliable treatment. Because apnea is worse in supine position, then patient should avoid sleeping on back. Methods discussed such as positioning with pillows, using a T-shirt with tennis balls in the back, and shown commercial products that have a pillow format on back to prevent supine sleep. I reviewed the impact of weight changes on sleep apnea and strongly recommended losing weight. Patient does not drink alcohol. Patient was cautioned about risks of drowsy driving until sleepiness symptoms resolve. Sleep Study - Results Type of Sleep Study: Polysomnography Prior sleep studies: Yes Year and Where: probably 5 years ago and diagnosed with sleep apnea; [facility] Polysomnography/Home Sleep Study results: IMPRESSION: The quality of the study is good. The patient had slightly reduced sleep efficiency due to sleep onset insomnia.. Except for mild sleep fragmentation, the sleep architecture was normal. Respiratory monitoring showed mild obstructive sleep apnea-hypopnea (AHI = 10.4) associated with frequent arousals, oxyhemoglobin desaturation and mild hypoxia (ana oxygen saturation of 87%). The respiratory events occurred mainly during supine sleep (supine AHI = 14.6; non-supine = 5.63). Snore was light to loud in intensity. There was severe periodic leg movement of sleep contributing to the sleep fragmentation. Cardiac rhythm was normal sinus rhythm without significant arrhythmia. No abnormal behavior (parasomnia) observed during the night. Allergies and Home Medications Drug allergies reviewed: Yes (codiene) Home medication list reviewed: Yes (no changes) Review of Systems Review of systems same as previous: Yes (no changes) Physical Exam Heart Rate: 75 O2 Saturation: 100 Height: 5 ft 7 in Weight: 203 lb Body Mass Index: 31.8 BMI Classification: Obese Impression and Plan 1. Obstructive Sleep Apnea-Hypopnea Syndrome, mild, with lowest oxygen saturation of 87%. This is a possible cause of the patients symptoms of unrefreshed sleep, and excessive daytime sleepiness. Patient advised that positive pressure therapy could benefit her hypertension and GERD. Patient has problems with claustrophobia and does not think she could tolerate a CPAP mask. After discussing other non-PAP options she would like to try an oral appliance with positional therapy. Since patients apnea is primarily in supine position, patient may try positional therapy. She is also planning to lose weight to reduce her apnea severity. As mentioned above, the patient chose an oral appliance together with positional therapy to treat their apnea. A 3 month follow up will be made to see if use of appliance, positional therapy and weight loss has reduced symptoms. If so, another polysomnography will be ordered with use of the oral appliance to check efficacy in reducing apnea. Until patient is able to use the oral appliance, positional therapy is advised to avoid supine sleep with pillow positioning or one of the commercial products because apnea is more severe supine. 2. Periodic limb movement, severe, that did fragment patients sleep. Periodic limb movement of sleep (PLMS) is characterized by episodes of repetitive limb movements that occur during sleep and usually involve the lower limbs. The etiology is unknown but can be associated with restless leg syndrome (RLS), neuropathy, spinal cord diseases, kidney disease, rheumatological disorders, narcolepsy, obstructive sleep apnea, and REM sleep behavior disorder. Other factors that can increase PLMS and/or RLS are heredity and iron deficiency as reflected by a low serum ferritin level below 50 to 75mcg / L. Several medications can precipitate or aggravate PLMS such as selective serotonin re- uptake inhibitor antidepressants, tricyclic antidepressants, lithium, and dopamine receptor antagonists with the exception of bupropion. Caffeine can also aggravate PLMS and should be avoided. Sleep hygiene methods can also improve sleep as well as lifestyle changes such as regular exercise. Patient was advised that further evaluation may be indicated. 3. Obesity. Currently patients BMI is 30.5. Obesity increases the risk of apnea and overall health risks especially cardiovascular and diabetes. Thus patient is advised to continue to lose weight. Weight loss can be done with reducing portion size, reducing refined foods and balancing content with vegetables, fruit and protein. In addition tracking food intake will allow awareness of how to modify diet to achieve weight loss goals. Also eating more slowly will allow more awareness of food intake and enjoyment of food while assisting patient to modify intake at each meal. A diet consultation can be helpful in achieving optimal weight loss goals. The BMI chart was reviewed. The patient would like to reduce to approximately 150 pounds. Patient encouraged to discuss their weight loss goals with their PCP and consider a referral to a sales promotion officer. * Oral appliance * Positional management therapy. * Follow up with PCP for severe periodic limb movement for evaluation * Continue to try to lose weight. Consult with PCP for dietitian consult. * The patient is again cautioned about driving until sleepiness completely resolves. * Return three months after oral appliance obtained. I will assess response to therapy and compliance at that time. Visit Type: In Office Time Spent with Patient (minutes): 20 Provider Statement: I spent 100% of the Face to Face Visit with the patient with greater than 50% spent counseling the patient and coordination of care.
== END 2020-05-13 07:59 | disposition home or self-care (01) ==
LOC: SC 07:58
PROVIDERS: ATTEND Nurse Practitioner Family
DX: G47.33 Obstructive sleep apnea (adult) (pediatric) (principal); G47.61 Periodic limb movement disorder; E66.9 Obesity, unspecified; Z68.30 Body mass index [BMI] 30.0-30.9, adult
CPT/HCPCS: 99213; G0463; 99212

== ENCOUNTER 2020-07-01 09:08 | Outpatient (CLI) | payer MEDICARE, OTHER ==
--- NOTE | 2020-07-04 16:02 | Mammography Report ---
BILATERAL DIGITAL SCREENING MAMMOGRAM 3D/2D: 07/01/2020 CLINICAL: Routine screening. Comparison is made to exams dated: 02/10/2018 mammogram, 01/25/2017 mammogram, 01/16/2017 mammogram, 06/2012 mammogram - [facility], 12/05/2011 mammogram, and 12/13/2010 mammogram - [facility]. The tissue of both breasts is heterogeneously dense. This may lower the sensitivity of mammography. There are benign calcifications in both breasts. No significant masses, calcifications, or other findings are seen in either breast. There has been no significant interval change. IMPRESSION: BENIGN There is no mammographic evidence of malignancy. A 1 year screening mammogram is recommended. This exam was interpreted at Station ID: [id number]. NOTE: For mammograms, a report in lay terms will be sent to the patient. Approximately 15% of breast malignancies will not be visualized mammographically. In the management of a palpable breast mass, a negative mammogram must not discourage biopsy of a clinically suspicious lesion. Electronically Signed By: Shahram romeo/penrad:07/01/2020 10:58:34 ACR BI-RADS Category 2: Benign Finding(s) 3342F PARENCHYMAL PATTERN: (D) - The breast(s) demonstrate(s) heterogeneously dense fibroglandular henri hodgson. BI-RADS CATEGORY: (2) - 2 RECOMMENDATION: (ANNUAL) - Recommend routine annual screening mammography. [id number] 1 year screening LATERALITY: (B)
== END 2020-07-01 09:09 | disposition home or self-care (01) ==
LOC: DI.N 09:08
DX: Z12.31 Encounter for screening mammogram for malignant neoplasm of breast (principal)
CPT/HCPCS: 77063; 77067

== ENCOUNTER 2020-08-05 08:00 | Outpatient (CLI) | payer MEDICARE, OTHER ==
[2020-08-05 12:52] LABS: ABSOLUTE RETICS # AUTO 0.105 10^6/uL (0.020-0.110); BASOPHILS % (AUTO) 0.4 %; EOSINOPHILS # (AUTO) 0.2 10^3/uL (0.0-0.7); EOSINOPHILS % (AUTO) 2.9 %; HGB - HEMOGLOBIN 12.2 g/dL (12.0-16.0); LYMPHOCYTES # (AUTO) 1.9 10^3/uL (1.5-3.5); LYMPHOCYTES % (AUTO) 33.7 %; MEAN CORPUSCULAR HEMOGLOBIN 31.9 pg (27.0-31.0); MEAN CORPUSCULAR HGB CONC 33.3 g/dL (32.0-36.0); MEAN CORPUSCULAR VOLUME 95.6 fL (81.0-99.0); MEAN PLATELET VOLUME 10.5 fL (7.9-10.8); MONOCYTES # (AUTO) 0.4 10^3/uL (0.0-1.0); MONOCYTES % (AUTO) 7.7 %; NEUTROPHILS # (AUTO) 3.1 10^3/uL (1.5-6.6); NEUTROPHILS % (AUTO) 54.9 %; PLT - PLATELET COUNT 248 10^3/uL (130-450); RED BLOOD COUNT 3.83 10^6/uL (4.20-5.40); RED CELL DISTRIBUTION WIDTH 12.8 % (12.0-15.0); WHITE BLOOD COUNT 5.6 x10^3/uL (4.8-10.8)
[2020-08-05 13:32] LABS: % IRON SATURATION 17 % (20-50); ALBUMIN 4.3 g/dL (3.2-5.5); ALBUMIN/GLOBULIN RATIO 1.4 (1.0-2.2); ALKALINE PHOSPHATASE 56 IU/L (42-121); ALT ALANINE AMINOTRANSFERASE 15 IU/L (10-60); AST ASPARTATE AMINOTRANSFERASE 18 IU/L (10-42); BILIRUBIN,TOTAL 0.7 mg/dL (0.2-1.0); BUN - BLOOD UREA NITROGEN 16 mg/dL (6-20); CALCIUM 9.7 mg/dL (8.5-10.3); CARBON DIOXIDE - CO2 27 mmol/L (21-32); CHLORIDE 104 mmol/L (101-111); CHOL/HDL RATIO 4.2 (<4.4); CHOLESTEROL 275 mg/dL; CREATININE 0.6 mg/dL (0.4-1.0); GLUCOSE 88 mg/dL (70-100); HDL CHOLESTEROL 66 mg/dL; IRON 63 ug/dL (28-170); LDL CHOLESTEROL,CALCULATED 172 mg/dL; LDL/HDL RATIO 2.6 (<4.4); SODIUM 140 mmol/L (135-145); TOTAL IRON BINDING CAPACITY 365 ug/dL (250-450); TOTAL PROTEIN 7.4 g/dL (6.7-8.2); TRANSFERRIN 261 mg/dL (192-382); VLDL CHOLESTEROL 37 mg/dL
[2020-08-05 13:41] LABS: FERRITIN 43.5 ng/mL (11.0-306.8)
[2020-08-05 13:44] LABS: FOLATE 18.4 ng/mL (5.90 - >24.8)
== END 2020-08-05 08:01 | disposition home or self-care (01) ==
LOC: LAB.WCP 08:00
PROVIDERS: ATTEND Internal Medicine
DX: I10 Essential (primary) hypertension (principal); D64.9 Anemia, unspecified
CPT/HCPCS: 36415; 80053; 80061; 82607; 82728; 82746; 83540; 83721; 84443; 84466; 85025; 85045

== ENCOUNTER 2020-08-16 11:01 | Outpatient (CLI) | payer MEDICARE, OTHER ==
--- NOTE | 2020-08-16 11:19 | SLEEP CARE CONSULTATION ---
Information from patient questionnaire entered by Carmen Howell. I have reviewed and concur with the information entered by Carmen Howell. This document represents the service I personally performed and the decisions made by , Gabriella Lloyd ARNP. History of Present Illness Service Date and Time: 08/16/2020 1100 Previous diagnosis: Mild, Obstructive Sleep Apnea-Hypopnea Syndrome AHI: 10.4 (in 2019) Reason for follow up: first compliance Equipment type: CPAP Equipment obtained from: [facility] ([place]; inital supplies received) Mask style: Nasal ([place]) Mask brand: Respironics Backup mask available: No (keep old mask once replaced) Last cushion change: 3 days ago Prior sleep studies: Yes Year and Where: 2019 - [facility] ; probably 5 years ago - [facility] Type of Sleep Study: Polysomnography HPI additional information: PO ROMERO was diagnosed to have mild, AHI 10.4, obstructive sleep apnea- hypopnea syndrome and returns via Telehealth visit today for CPAP therapy first compliance follow-up. CPAP Compliance Data - Data Reviewed with Patient Average duration of nightly device use: 4 hours 19 minutes Compliance rate %: 70 Current pressure setting (cmH2O): 4-15 Humidity settin Heated hose settin Average residual AHI: 4.4 Central apnea: 0.6 Obstructive apnea: 1.5 Hypopnea: 2.4 Average large leak: 12 seconds Subjective Missed days of use due to: reports: illness (cold, congested), travel Patient concerns: reports: mask leak noise (reduces with adjustment of headgear), dry mouth, nose, throat (dry mouth). denies: aerophagia, mask discomfort, air blowing in eyes, condensation in mask/hose, nasal congestion (has history of allergies and PND), epistaxis, other Observed to snore while using device: No Current pressure setting perceived as: comfortable On therapy, patient: reports: sleeping better, awakening more refreshed, being more awake and alert during the day, more rested overall. denies: drowsiness while driving Initial [place] Sleepiness Scale score: 10 (in 2019) Current [place] Sleepiness Scale score: 8 Allergies and Home Medications Drug allergies reviewed: Yes (codiene) Home medication list reviewed: Yes (no changes) Review of Systems Review of systems same as previous: Yes (no changes) Physical Exam Vital signs obtained and entered by: Telehealth visit to limit exposure Covid pandemic Height: 5 ft 7 in Impression and Plan 1. Obstructive Sleep Apnea-Hypopnea Syndrome, mild, with fair treatment compliance and fair apnea control. On CPAP therapy, the patient has better sleep quality and is more rested overall. She has been using pressures: median 7.8 cmH2O and 90% average 10.3 cmH2O. I will adjust her pressure to 8-11 cmH2O to accommodate for her pressure needs. She has had some mask leak noise that reduces/resolves with adjusting the headgear and mask. She is waking up with some dry mouth in the morning. Oral dryness can be reduced by adjusting humidity setting higher or heated hose lower or by adjusting both settings. Verbal instructions given on how to change humidity and heated hose settings with rationale explaining why to change. She voiced understanding. Patient's apnea severity and rationale for treatment to reduce apnea, improve sleep quality and reduce cardiovascular and cerebrovascular events was reviewed. I also reviewed the benefit of consistent device use of CPAP for hypertension and gastric reflux. * Changeauto CPAP pressure to 8-11 cmH2O * Adjust humidity setting to reduce oral dryness * Notify me if snoring with mask or feeling that the pressure is too much or too little * Call this office if any problems using CPAP * Return for follow up in 1-2 months , or sooner if concerns arise Counseling Topics: Spare mask Visit Type: Telehealth Phone Video Type: Solit[place] Patient Location: Home Location of Provider: Office Patient agrees and consents to this telehealth visit type: Yes Patient agrees to have their insurance billed: Yes Time Spent with Patient (minutes): 16 Provider Statement: I spent 100% of the Telehealth Phone Call with the patient with greater than 50% spent counseling the patient and coordination of care.
--- OUTSIDE RECORDS SUMMARY | 2020-08-16 14:54 | EXTERNAL MEDICAL SUMMARY RPT | Continuity of Care Document ---
:1955 Demographics Phone Unavailable Preferred Language Bengali Marital Status Unknown Buddhist Affiliation Unknown Race Unknown Ethnic Group Unknown Author Organization [place] Address [address] [place] [address] Phone Care Team Providers Name Role Phone MD Unavailable Unavailable MD Unavailable Unavailable Langrock Unavailable Unavailable Katus Unavailable Unavailable Langrock Unavailable Unavailable MA-C Unavailable Unavailable Rahul Unavailable Unavailable Andre Unavailable Unavailable John Unavailable Unavailable Self Unavailable Unavailable Problems date description facility Finding [facility] 2013-01-12 15:32 [facility]O [facility] 2015-12-12 14:25 TINEA [facility]EDIS [facility] 2015-12-12 14:25 CELLULITIS OF LEFT TOE [facility] 2015-12-12 14:25 PAIN IN LEFT TOE(S) [facility] 2015-12-12 14:25 ELEVATED BLOOD-PRESSURE READING, [facility] W/O DIAGNOSIS OF HTN 2015-12-15 00:00:00 TSH w/reflex to FT4, if indicated [facility] [address] 2015-12-15 00:00:00 LIPIDS [facility] [address] 2015-12-15 00:00:00 [facility]iat[facility]ation [facility] rimary [facility] [address] 2015-12-15 00:00:00 Corns and callus [facility] [address] 2015-12-15 00:00:00 Exercise [facility] [address] 2015-12-15 00:00:00 CMP [facility] [address] 2015-12-15 00:00:00 Obesity, unspecified [facility] Pr imary Care [address] 2015-12-15 00:00:00 Essential (primary) hypertension [facility] [address] 2015-12-15 00:00:00 Headache [facility] [address] 2015-12-15 00:00:00 Never smoker [facility] [address] 2015-12-15 00:00:00 Obesity [facility] [address] 2015-12-15 00:00:00 CBCDP [facility] [address] 2015-12-15 00:00:00 [facility]s [facility] call[facility] [address] 2015-12-15 00:00:00 Tobacco use and exposure [facility] [address] 2015-12-15 00:00:00 Tobacco smoking status [facility] [address] 2015-12-15 00:00:00 Benign essential hypertension Counts Include 234 Beds At [facility] Primary Care [address] 2015-12-15 00:00:00 Alcohol intake [facility] [address] 2015-12-15 00:00:00 Alcohol use [facility] [address] 2016-01-13 00:00:00 Exercise [facility] Prim jerad [facility] [address] 2016-01-13 00:00:00 Never smoker [facility] Prim jerad [facility] [address] 2016-01-13 00:00:00 Osteoarthrosis, unspecified [facility] Primary Care whether generalized or localized, [address] involving lower leg 2016-01-13 00:00:00 Alcohol use [facility] Prim [facility] [address] 2016-01-13 00:00:00 Tobacco [facility] [address] 2016-01-13 00:00:00 Knee 3V [facility] Prim jerad [facility] [address] 2016-01-13 00:00:00 Oste[facility], [facility] unspecified [address] 2016-01-13 00:00:00 Alcohol intake [facility] Prim jerad [facility] [address] 2016-01-13 00:00:00 Tobacco use and exposure [facility] [address] 2016-01-13 00:00:00 Oste[facility] [address] 2016-02-16 00:00:00 Cellulitis of toe [facility] [address] 2016-02-16 00:00:00 Dermatophytosis of nail [facility] [address] 2016-02-16 00:00:00 Cellulitis and abscess of toe, [facility] unspecified [address] 2016-02-16 00:00:00 Tinea unguium [facility] Prim jerad Care [address] 2016-02-16 00:00:00 Cellulitis of left toe [facility] [address] 2016-02-16 00:00:00 Onychomycosis of toenails [facility] [address] 2016-02-28 00:00:00 [facility]iatry [facility]ation [facility] 2016-04-12 00:00:00 TSH w/reflex to FT4, if indicated [facility] [address] 2016-04-12 00:00:00 Sed Rate Non-Auto [facility] [address] 2016-04-12 00:00:00 CMP [facility] [address] 2016-04-12 00:00:00 CBCDP [facility] jer[facility] 2016-04-12 00:00:00 Malaise and fatigue [facility] 2016-04-12 00:00:00 Personal history of other [facility] specified conditions [facility] 2016-04-12 17:01 ESSENTIAL (PRIMARY) HYPERTENSION [facility] 2016-04-12 17:01 HEADACHE [facility] 2016-10-20 07:58 TINEA UNGUIUM [facility] 2016-10-20 07:58 ESSENTIAL (PRIMARY) HYPERTENSION [facility] 2016-10-20 07:58 UNILATERAL [facility] OSTEOARTHRITIS, LEFT KNEE 2016-10-20 07:58 UNSPECIFIED INFLAMMATORY [facility] SPONDYLOPATHY, LUMBAR REGION 2016-10-20 07:58 ENCOUNTER FOR THERAPEUTIC DRUG [facility] LEVEL MONITORING 2016-12-21 00:00:00 Dizziness and giddiness [facility] [address] 2016-12-21 00:00:00 Lumbago [facility] [address] 2016-12-21 00:00:00 Tobacco smoking status NHIS [facility] 2016-12-21 00:00:00 Low back pain [facility] 2016-12-21 00:00:00 Dysequilibrium syndrome [facility] 2016-12-21 00:00:00 [facility] 2016-12-31 17:06 PAIN IN LEFT [facility] 2016-12-31 17:06 UNSPECIFIED [facility] SPONDYLOPATHY, LUMBAR REGION 2017-01-10 00:00:00 MM SCR DIGITAL BILAT [facility] [address] 2017-01-10 00:00:00 Other screening mamm[facility] [address] 2017-01-10 00:00:00 Encounter for screening mammogram [facility] for malignant neoplasm of breast [address] 2017-01-10 00:00:00 Screening mammography [facility] 2017-01-16 13:40 ENCNTR SCREEN MAMMOGRAM FOR [facility] MALIGNANT NEOPLASM OF BREAST 2017-01-16 13:42 INCONCLUSIVE MAMMOGRAM [facility] 2017-01-16 13:42 ENCNTR SCREEN MAMMOGRAM FOR [facility] MALIGNANT NEOPLASM OF BREAST 2017-01-16 13:42 FAMILY HISTORY OF MALIGNANT [facility] NEOPLASM OF BREAST 2017-01-16 14:40 ENCNTR SCREEN MAMMOGRAM FOR [facility] MALIGNANT NEOPLASM OF BREAST 2017-01-25 14:40 UNSPECIFIED LUMP IN BREAST [facility] 2017-03-05 00:00:00 PAIN IN LEFT [facility] 2017-03-05 00:00:00 LUMBAR SPINE 2 OR 3 VIEW [facility] [address] 2017-03-05 00:00:00 Orthopedics Consultation [facility] [address] 2017-03-05 00:00:00 Lumbar radiculopathy [facility] [address] 2017-03-05 00:00:00 Tobacco smoking status NHIS [facility] [address] 2017-03-05 00:00:00 Spondylolisthesis, congenital Counts Include 234 Beds At [facility] Primary Care [address] 2017-03-05 00:00:00 Radiculopathy, lumbar region [facility] [address] 2017-03-05 00:00:00 Spondylolisthesis, site [facility] 2017-03-05 00:00:00 Spondylolisthesis [facility] 2017-03-05 00:00:00 Thoracic or lumbosacral neuritis [facility] Primary Care or radiculitis, unspecified [facility] 2017-03-05 00:00:00 MRI LUMBAR SPINE W/O CONTRAST [facility] Care [facility] 2017-03-05 00:00:00 Exercise [facility] 2017-03-13 15:58 SPONDYLOLISTHESIS, SITE [facility] UNSPECIFIED 2017-03-13 15:58 SPONDYLOLISTHESIS, LUMBOSACRAL [facility] REGION 2017-03-13 15:58 OTHER SPONDYLOSIS, LUMBAR REGION [facility] 2017-03-13 15:58 OTHER SPONDYLOSIS, LUMBOSACRAL [facility] REGION 2017-03-13 15:58 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 2017-03-13 16:45 SPONDYLOLISTHESIS, SITE [facility] UNSPECIFIED 2017-03-13 16:45 RADICULOPATHY, LUMBAR REGION [facility] 2017-03-19 00:00:00 PAIN IN LEFT [facility] 2017-05-02 00:00:00 Unspecified inflammatory [facility] Primary Care spondylopathy, cervical region [address] Raymond zhong 2017-05-02 00:00:00 Spondylosis of unspecified site [facility] Primary Care without mention of myelopathy [facility] 2017-05-02 00:00:00 [facility] 2017-05-02 00:00:00 NCV/EMG [facility] [address] [facility] 2017-05-03 00:00:00 CERVICAL SPINE 2 OR 3 VW [facility] [address] [facility] 2017-08-21 00:00:00 Orthopedics Consultation [facility] [address] [facility] 2018-02-10 14:38 ENCNTR SCREEN MAMMOGRAM FOR [facility] MALIGNANT NEOPLASM OF BREAST 2018-03-06 00:00:00 Tobacco use and exposure [facility] [address] 2018-03-06 00:00:00 Tobacco smoking status NHIS Lor[facility] Primary Care [address] 2018-03-06 00:00:00 Never smoker [facility] Prim jerad Care [address] [facility] 2018-03-06 00:00:00 Alcohol use [facility] [place] [facility] Care [address] [facility] 2018-03-06 00:00:00 Alcohol intake [facility] [place] jer[facility] Care [address] [facility] 2018-03-06 00:00:00 Exercise [facility] Prim jerad Care [address] [facility] 2018-03-28 14:36 Encounter for other [facility]procedural [facility] examination 2018-04-15 00:00:00 Tobacco use and exposure [facility] [address] 2018-04-15 00:00:00 Never smoker [facility] [place] jerad Care [address] 2018-04-15 00:00:00 Rib pain [facility] Prim jerad Care [address] 2018-04-15 00:00:00 Tobacco smoking status NHFELY Baron [facility] Primary Care [address] 2018-04-15 00:00:00 Unspecified chest [facility] [address] [facility] 2018-04-15 00:00:00 RIBS UNILATERAL 2 VIEW [facility] [address] [facility] 2018-04-15 00:00:00 Health-related behavior [facility] [address] [facility] 2018-04-15 00:00:00 Pleurodynia [facility] Prim jerad Care [address] [facility] 2018-04-15 00:00:00 Exercise [facility] [address] [facility] 2018-04-15 00:00:00 Alcohol use [facility] [address] [facility] 2018-04-24 06:22 Spondylolisthesis, lumbar region [facility] 2018-04-24 06:22 Other spondylosis with [facility] radiculopathy, lumbar region 2018-04-24 06:22 Spinal stenosis, lumbar region [facility] without neurogenic claudicati 2018-04-24 07:45 Spondylolisthesis, lumbar region [facility] 2018-04-24 07:45 Other spondylosis with [facility] radiculopathy, lumbar region 2018-04-24 07:45 Spinal stenosis, lumbar region [facility] without neurogenic claudicati 2018-06-06 00:00:00 Urine C&S [facility] [address] 2018-06-06 00:00:00 Health-related behavior [facility] [address] 2018-06-06 00:00:00 Tobacco use and exposure [facility] [address] 2018-06-06 00:00:00 Tobacco smoking status [facility] [address] 2018-06-06 00:00:00 Total score? [facility] [address] 2018-06-06 00:00:00 Dysuria [facility] Care [address] [facility] 2018-06-06 00:00:00 Never smoker [facility] Prim [facility]ad Care [address] [facility] 2018-06-06 00:00:00 Alcohol use [facility] [address] [facility] 2018-06-06 00:00:00 Exercise [facility] Prim [facility]ad Care [address] [facility] 2018-06-06 08:00 D[facility]URIA [facility] 2018-08-07 00:00:00 Cataract [facility] [address] 2018-08-07 00:00:00 Health-related [facility] [address] 2018-08-07 00:00:00 Exercise [facility] [address] 2018-08-07 00:00:00 Never smoker [facility] [address] 2018-08-07 00:00:00 Opthalmology Consultation [facility] 2018-08-07 00:00:00 Unspecified cataract [facility] 2018-08-07 00:00:00 Alcohol use [facility] Prim jerad Care [facility] 2018-08-07 00:00:00 Tobacco smoking status NHIS CarabeyKeyur alth Primary Care [facility] 2018-08-07 00:00:00 Total score? [facility] 2018-08-07 00:00:00 Tobacco use and exposure [facility] 2018-08-11 00:00:00 Opthalmology Consultation [facility] Care [facility] 2018-08-13 00:00:00 Acute frontal sinusitis [facility] 2018-08-13 00:00:00 Exercise [facility] 2018-08-13 00:00:00 Tobacco use and exposure [facility] Primary Care [facility] 2018-08-13 00:00:00 Tobacco smoking status KSIS [facility] Primary Care [facility] 2018-08-13 00:00:00 Total [facility] 2018-08-13 00:00:00 Acute frontal sinusitis, [facility] unspecified [facility] 2018-08-13 00:00:00 Health-related behavior [facility] 2018-08-13 00:00:00 [facility] 2018-08-13 00:00:00 Alcohol [facility] 2018-09-16 00:00:00 Acute bronch[facility] 2018-09-16 00:00:00 Acute bronchitis, unspecified [facility] 2018-09-18 00:00:00 Opthalmology Consultation [facility] 2018-10-24 00:00:00 Tobacco use and exposure idbeyCentervillet Primary Care [facility] 2018-10-24 00:00:00 Gastroesophageal reflux disease [facility] 2018-10-24 00:00:00 Exercise [facility] Prim jerad Care [facility] 2018-10-24 00:00:00 Tobacco smoking status NHIS idbeyHe [facility] Primary [facility] 2018-10-24 00:00:00 Total score? [facility] 2018-10-24 00:00:00 Esophageal reflux [facility] 2018-10-24 00:00:00 Lack of coordination [facility] 2018-10-24 00:00:00 [facility] 2018-10-24 00:00:00 Gastro-esophageal reflux disease id [facility] Primary Care without esophagitis [facility] 2018-10-24 00:00:00 Cough [facility] 2018-10-24 00:00:00 Unspecified lack of coordination [facility] Primary Care [facility] 2018-10-24 00:00:00 Health-related behavior [facility] Primary Care [facility] 2018-10-24 00:00:00 Never smoker [facility] Prim jerad [facility] 2018-10-24 00:00:00 Impairment of balance [facility] 2018-10-24 00:00:00 Chronic cough [facility] 2018-10-24 00:00:00 Alcohol use [facility] 2018-12-04 00:00:00 TSH WITH REFLEX TO FT4 [facility] Primary Care [facility] 2018-12-04 00:00:00 Labyrinthitis, unspecified [facility] 2018-12-04 00:00:00 Screening for lipoid disorders [facility] Primary Care [facility] 2018-12-04 00:00:00 LIPID SCREEN, FASTING [facility] P rimary Care [facility] 2018-12-04 00:00:00 HGBA1C [facility]ad [facility] 2018-12-04 00:00:00 Encounter for general adult idbeyHe [facility] Primary Care medical examination without [facility] abnormal findings 2018-12-04 00:00:00 Health-related behavior [facility] 2018-12-04 00:00:00 Never smoker [facility] 2018-12-04 00:00:00 Procedure carried out on subject id [facility] Primary Care [facility] 2018-12-04 00:00:00 Alcohol use [facility] 2018-12-04 00:00:00 Tobacco smoking status NHIS idbeyHe [facility] Primary Care [facility] 2018-12-04 00:00:00 Total score? [facility] 2018-12-04 00:00:00 Routine general medical [facility] Primary Care examination at a [facility] facility 2018-12-04 00:00:00 COMPREHENSIVE METABOLIC PANEL Counts Include 234 Beds At [facility] Primary Care [facility] 2018-12-04 00:00:00 CBC W/Diff/Plt [facility] 2018-12-04 00:00:00 Labyrinthitis, unspecified ear [facility] Primary Care [facility] 2018-12-04 00:00:00 Encounter for screening for [facility] lipoid disorders [facility] 2018-12-04 00:00:00 Preventive procedure [facility] Pr imary Care [facility] 2018-12-04 00:00:00 Tobacco use and exposure [facility] 2018-12-04 00:00:00 Labyrinthitis [facility] 2018-12-04 00:00:00 Exercise [facility] 2018-12-04 12:21 ESSENTIAL (PRIMARY) HYPERTENSION [facility] 2018-12-04 12:21 ENCNTR FOR GENERAL ADULT MEDICAL [facility] EXAM W/O ABNORMAL FINDINGS 2018-12-04 12:21 ENCOUNTER FOR SCREENING FOR [facility] LIPOID DISORDERS 2018-12-12 00:00:00 Health-related behavior [facility] 2018-12-12 00:00:00 [facility] 2018-12-12 00:00:00 Alcohol [facility] 2018-12-12 00:00:00 Tobacco smoking status NHIS [facility] Primary Care [place] [facility] 2018-12-12 00:00:00 Total score? [facility] 2018-12-12 00:00:00 Tobacco use and exposure [facility] h Primary Care [facility] 2018-12-12 00:00:00 Exercise [facility]UNC [facility] 2019-03-07 00:00:00 Nonallopathic lesions of thoracic i [facility] Primary Care region, not elsewhere classified [place] R 2019-03-07 00:00:00 Segmental and somatic dysfunction [facility] of cervical region [facility] 2019-03-07 00:00:00 Segmental and somatic dysfunction [facility] of thoracic region [facility] 2019-03-07 00:00:00 Tobacco use and exposure [facility] Primary Care [facility] 2019-03-07 00:00:00 Never smoker [facility] 2019-03-07 00:00:00 [facility]ical somatic [facility] 2019-03-07 00:00:00 Thoracic somatic dysfunction idbeyH ealt Primary Care [place] [facility] 2019-03-07 00:00:00 Alcohol use [facility] 2019-03-07 00:00:00 Nonallopathic lesions of cervical i [facility] Primary Care region, not elsewhere classified [facility] R [facility] 2019-03-07 00:00:00 Health-related [facility] 2019-03-07 00:00:00 [facility] Prim jerad [facility] 2019-03-07 00:00:00 Tobacco smoking status NHIS WhAugustin alth Primary Care [facility] 2019-03-07 00:00:00 Total score? [facility] 2019-03-09 00:00:00 Health-related behavior [facility] 2019-03-09 00:00:00 Exercise [facility]ad [facility] 2019-03-09 00:00:00 Tobacco smoking status NHIS [facility]idberajivHe alth Primary Care [facility] 2019-03-09 00:00:00 Total score? [facility]UNC [facility] 2019-03-09 00:00:00 Tobacco use and exposure [facility] Primary [facility] 2019-03-09 00:00:00 Never smoker [facility] 2019-03-09 00:00:00 Alcohol use [facility] 2019-03-22 09:18 Pain in [facility] 2019-05-13 00:00:00 CHEST 2 VIEW [facility] 2019-05-13 08:00 OTHER NONSPECIFIC ABNORMAL [facility] FINDING OF LUNG FIELD 2019-05-14 00:00:00 Solitary pulmonary nodule [facility] Primary [facility] 2019-05-14 00:00:00 Other diseases of lung, not idbeyHe [facility] Primary Care elsewhere classified [facility] 2019-05-14 00:00:00 XR CHEST SPECIAL VIEW(S) [facility] 2019-05-14 00:00:00 Lung mass [facility] 2019-05-14 14:12 SOLITARY PULMONARY NODULE [facility] 2019-05-15 00:00:00 CT CHEST WO [facility] 2019-05-15 15:00 SOLITARY PULMONARY NODULE [facility] 2019-05-15 15:30 SOLITARY PULMONARY NODULE [facility] 2019-07-14 00:00:00 Other [facility]ia [facility] 2019-07-14 00:00:00 Pain in joint involving lower leg [facility] 2019-07-14 00:00:00 Routine general [facility] a [facility] facility 2019-07-14 00:00:00 Other melanin [facility]pigmentation [facility] 2019-07-14 00:00:00 Encounter for general adult [facility] medical examination without [facility] abnormal findings 2019-07-14 00:00:00 Tobacco use and exposure [facility] 2019-07-14 00:00:00 [facility] 2019-07-14 00:00:00 Patellofemoral stress syndrome [facility] 2019-07-14 00:00:00 Tobacco smoking status NHIS [facility] 2019-07-14 00:00:00 [facility]14 00:00:00 Arthropathy unspecified, [facility] involving lower leg [facility] 2019-07-14 00:00:00 XR KNEE 3 VIEW [facility] 2019-07-14 00:00:00 Other specified arthritis, left [facility] 2019-07-14 00:00:00 Patellofemoral disorders, [facility] unspecified knee [facility] 2019-07-14 00:00:00 Health-related behavior [facility] 2019-07-14 00:00:00 Never smoker [facility] 2019-07-14 00:00:00 Screening - health check [facility] 2019-07-14 00:00:00 Arthritis of knee [facility] 2019-07-14 00:00:00 Solar lentigo [facility] [place] [facility] 2019-07-14 00:00:00 Alcohol use [facility] [place] [facility] 2019-07-14 14:54 OTHER SPECIFIED ARTHRITIS, LEFT [facility] KNEE 2019-07-14 14:54 UNILATERAL PRIMARY [facility] OSTEOARTHRITIS, LEFT KNEE 2019-07-14 14:54 PATELLOFEMORAL DISORDERS, [facility] UNSPECIFIED KNEE 2019-09-04 00:00:00 HGBA1C [facility] [place] [facility] 2019-09-15 00:00:00 Tobacco use and exposure [facility] [place] [facility] 2019-09-15 00:00:00 Exercise [facility] [place] [facility] 2019-09-15 00:00:00 Alcohol use [facility] [place] [facility] 2019-09-15 00:00:00 Health-related behavior [facility] [place] [facility] 2019-09-15 00:00:00 Never smoker [facility] [place] [facility] 2019-09-15 00:00:00 Tobacco smoking status [facility] [place] [facility] 2019-09-15 00:00:00 Total score? [facility] [place] [facility] 2019-10-29 00:00:00 Tobacco use and exposure [facility] [place] [facility] 2019-10-29 00:00:00 Exercise [facility] [place] [facility] 2019-10-29 00:00:00 Obesity [facility] [place] [facility] 2019-10-29 00:00:00 Alcohol use [facility] [place] [facility] 2019-10-29 00:00:00 Obesity, unspecified [facility] Pr imary [facility] [place] [facility] 2019-10-29 00:00:00 Health-related behavior [facility] [place] [facility] 2019-10-29 00:00:00 Never smoker [facility] [place] [facility] 2019-10-29 00:00:00 Tobacco smoking status [facility] 2019-10-29 00:00:00 [facility] 2019-11-25 00:00:00 TSH WITH REFLEX TO FT4 [facility] 2019-11-25 00:00:00 LIPID SCREEN, FASTING [facility] 2019-11-25 00:00:00 HGBA1C [facility] 2019-11-25 00:00:00 CBC W/Diff/Plt [facility] 2019-11-25 00:00:00 COMPREHENSIVE METABOLIC PANEL Counts Include 234 [facility]eds [facility] 2020-01-05 00:00:00 Irritable bowel syndrome [facility] 2020-01-05 00:00:00 Other dyspnea and respiratory Counts Include 234 [facility] Primary Care abnormality [facility] 2020-01-05 00:00:00 COMPREHENSIVE METABOLIC PANEL Counts Include 234 [facility] Primary [facility] 2020-01-05 00:00:00 [facility] 2020-01-05 00:00:00 Health-related behavior [facility] Primary Care [place] [facility] 2020-01-05 00:00:00 Never smoker [facility] 2020-01-05 00:00:00 Feeling down, depressed, or [facility] hopeless? [facility] 2020-01-05 00:00:00 LIPID SCREEN, FASTING [facility] 2020-01-05 00:00:00 CBC W/Diff/Plt [facility] 2020-01-05 00:00:00 Irritable bowel syndrome without [facility] diarrhea [facility] 2020-01-05 00:00:00 [facility] 2020-01-05 00:00:00 Tobacco use and exposure [facility] 2020-01-05 00:00:00 Exercise [facility] 2020-01-05 00:00:00 Little interest or pleasure in [facility] doing things? [facility] 2020-01-05 00:00:00 Patient Health Questionnaire 2 [facility] item (PHQ2) total score [facility] 2020-01-05 00:00:00 Alcohol use [facility] 2020-01-05 00:00:00 Tobacco smoking status KSIS [facility] 2020-01-05 00:00:00 Total score? [facility] 2020-01-07 00:00 OBESITY, UNSPECIFIED [facility] 2020-01-07 00:00 GASTRO-ESOPHAGEAL REFLUX DISEASE [facility] WITHOUT ESOPHAGITIS 2020-01-07 00:00:00 FIT DNA [facility] 2020-01-07 00:00:00 Anemia, unspecified [facility] Care [facility] 2020-01-07 00:00:00 Anemia [facility] 2020-01-07 08:00 OBESITY, UNSPECIFIED [facility] 2020-01-07 08:00 ESSENTIAL (PRIMARY) HYPERTENSION [facility] 2020-01-07 08:00 GASTRO-ESOPHAGEAL REFLUX DISEASE [facility] WITHOUT ESOPHAGITIS 2020-01-17 07:00 ANEMIA, UNSPECIFIED [facility] 2020-01-19 00:00 ANEMIA, UNSPECIFIED [facility] 2020-02-18 00:00:00 Abdominal pain, left lower [facility] quadrant [facility] 2020-02-18 00:00:00 Left lower quadrant pain [facility] 2020-02-18 00:00:00 Alcohol use [facility] 2020-02-18 00:00:00 Details of drug misuse behavior [facility] Primary Care [facility] 2020-02-18 00:00:00 Total score? [facility] 2020-02-25 09:55 OBESITY, UNSPECIFIED [facility] 2020-02-25 09:55 ESSENTIAL (PRIMARY) HYPERTENSION [facility] 2020-02-25 09:55 GASTRO-ESOPHAGEAL REFLUX DISEASE [facility] WITHOUT ESOPHAGITIS 2020-02-25 09:55 DVRTCLOS OF LG INT W/O [facility] PERFORATION OR ABSCESS W/O BLEEDING 2020-02-25 09:55 CONSTIPATION, UNSPECIFIED [facility] 2020-02-25 09:55 OTHER HEMORRHOIDS [facility] 2020-02-25 09:55 [facility]STRIC [facility]IN [facility] 2020-02-25 09:55 LEFT LOWER QUADRANT PAIN [facility] 2020-02-25 09:55 DIARRHEA, UNSPECIFIED [facility] 2020-02-25 09:55 ENCOUNTER FOR SCREENING FOR [facility] MALIGNANT NEOPLASM OF COLON 2020-02-25 09:55 BODY MASS INDEX (BMI) 32.0-32.9, [facility] ADULT 2020-03-17 00:00:00 Tobacco use and exposure [facility] 2020-03-17 00:00:00 Exercise [facility] 2020-03-17 00:00:00 Details of drug misuse behavior [facility] Care [facility] 2020-03-17 00:00:00 Tobacco smoking status NHIS [facility] 2020-03-17 00:00:00 Total score? [facility] 2020-03-17 00:00:00 Dermatophytosis of foot [facility] 2020-03-17 00:00:00 Tinea pedis [facility] 2020-03-17 00:00:00 Health-related behavior [facility] 2020-03-17 00:00:00 Alcohol use [facility] [place] [facility] 2020-04-12 14:36 ESSENTIAL (PRIMARY) HYPERTENSION [facility] 2020-04-12 14:36 DVRTCLOS OF LG INT W/O [facility] PERFORATION OR ABSCESS W/O 2020-04-12 14:36 LEFT LOWER QUADRANT PAIN [facility] 2020-04-12 14:36 NAUSEA [facility] 2020-04-12 14:36 DIARRHEA, UNSPECIFIED [facility] 2020-04-12 14:36 FEVER, UNSPECIFIED [facility] 2020-04-13 00:00:00 Diarrhea [facility] [place] [facility] 2020-04-13 00:00:00 Diarrhea, unspecified [facility] P rimary [facility] [place] [facility] 2020-04-14 14:21 ESSENTIAL (PRIMARY) HYPERTENSION [facility] 2020-04-14 14:21 NAUSEA [facility] Medic al [place] 2020-04-14 14:21 DIARRHEA, UNSPECIFIED [facility] Tx dical [place] 2020-04-14 14:21 WEAKNESS [facility] 2020-04-14 14:21 CONTACT W AND EXPOSURE TO OTH [facility] VIRAL COMMUNICABLE D 2020-08-04 00:00:00 Iron & TIBC [facility] [place] [facility] 2020-08-04 00:00:00 TSH WITH REFLEX TO FT4 [facility] [place] [facility] 2020-08-04 00:00:00 Endometriosis, site unspecified [facility] [place] [facility] 2020-08-04 00:00:00 Encounters for other specified [facility] administrative purpose [place] [facility] 2020-08-04 00:00:00 COMPREHENSIVE METABOLIC PANEL [facility] Primary Care [place] [facility] 2020-08-04 00:00:00 LIPIDS SCREEN [facility] [place] [facility] 2020-08-04 00:00:00 VITAMIN B 12 [facility] [place] [facility] 2020-08-04 00:00:00 Ferritin [facility] [place] [facility] 2020-08-04 00:00:00 Folic Acid [facility] [place] [facility] 2020-08-04 00:00:00 Transferrin [facility] [place] [facility] 2020-08-04 00:00:00 CBC W/Diff/Plt [facility] [place] [facility] 2020-08-04 00:00:[address] [facility] [place] [facility] 2020-08-04 00:00:00 ECHO TRANSTHORACIC COMPLETE [facility] [place] [facility] 2020-08-04 00:00:00 Endometriosis, unspecified [facility] [place] [facility] 2020-08-04 00:00:00 Other specified counseling [facility] [place] [facility] 2020-08-04 00:00:00 Endometriosis (clinical) [facility] [place] [facility] 2020-08-04 00:00:00 Health[facility]related [facility] [place] [facility] 2020-08-04 00:00:00 Tobacco use and exposure [facility] [place] [facility] 2020-08-04 00:00:00 Exercise [facility] [place] [facility] 2020-08-04 00:00:00 Never smoker [facility] [place] [facility] 2020-08-04 00:00:00 Procedure carried out on subject [facility] [place] [facility] 2020-08-04 00:00:00 Alcohol use [facility] [place] [facility] 2020-08-04 00:00:00 Tobacco smoking status NHIS [facility] [place] [facility] 2020-08-04 00:00:00 Total score? [facility] [place] [facility] 2020-08-05 00:00 ANEMIA, UNSPECIFIED [facility] 2020-08-05 00:00 ESSENTIAL (PRIMARY) HYPERTENSION [facility] 2020-08-05 08:00 ANEMIA, UNSPECIFIED [facility] 2020-08-05 08:00 ESSENTIAL (PRIMARY) HYPERTENSION [facility] 2020-08-08 00:00:00 Other and unspecified [facility] hyperlipidemia [place] [facility] 2020-08-08 00:00:00 Hyperlipidemia, unspecified [facility] [place] [facility] 2020-08-08 00:00:00 Hyperlipidemia [facility] [place] [facility] Allergies date description facility [facility] NO KNOWN ENVIRONMENTAL ALLERGIES [facility] No Known [facility]ergies [facility] PENICILLIN G POTASSIUM [facility] PENICILLIN [facility] SUMATRIPTAN SUCCINATE [facility] PEANUT [facility] ONION [facility] NO ALLERGY INFORMATION AVAILABLE [facility] NO KNOWN ALLERGIES [facility] INDOMETHACIN [facility] POLLEN EXTRACTS [facility] FLECAINIDE [facility] EGG [facility] codeine [facility] NO KNOWN ENVIRONMENTAL ALLERGIES [facility] PENICILLINS [facility] NO KNOWN ALLERGIES [facility] SHELLFISH DERIVED [facility] BEE VENOM PROTEIN (HONEY BEE) [facility] HYDROCODONE [facility] OXYCODONE [facility] NO ALLERGY INFORMATION AVAILABLE [facility] LATEX [facility] NO KNOWN ENVIRONMENTAL ALLERGIES [facility] NO KNOWN ALLERGIES [facility] codeine [facility] AMLODIPINE BESYLATE [facility] [place] [facility] ATORVASTATIN [facility] BENZALKONIUM CHLORIDE [facility] CEPHALEXIN [facility] CHLORHEXIDINE [facility] CODEINE SULFATE [facility] DILTIAZEM HCL [facility] ISOSORBIDE MONONITRATE [facility] LISINOPRIL [facility] PRAVASTATIN [facility] ROSUVASTATIN [facility] TRAMADOL [facility] VENLAFAXINE [facility] BACTRIM [facility] ESOMEPRAZOLE MAGNESIUM [facility] edical Center NO KNOWN ENVIRONMENTAL ALLERGIES [facility] PENICILLINS [facility] SULFA ANTIBIOTICS [facility] AMOXICILLIN [facility] ERYTHROMYCIN [facility] NO KNOWN ALLERGIES [facility] NO ALLERGY INFORMATION AVAILABLE [facility] NSAIDS (NON-STEROIDAL ANTI-INFLAMMATORY DRUG) [facility] NO KNOWN ALLERGIES [facility] IODINE [facility] LATEX [facility] BENZOCAINE [facility] POLLEN EXTRACTS [facility] AMOXICILLIN [facility] PROCAINE [facility] CEFAZOLIN [facility] LISINOPRIL [facility] SULFAMETHOXAZOLE-TRIMETHOPRIM [facility] codeine [facility] HYDROCODONE [facility] HYDROCODONE-ACETAMINOPHEN [facility] IODINATED DIAGNOSTIC AGENTS [facility] NO KNOWN ENVIRONMENTAL ALLERGIES [facility] SULFA (SULFONAMIDE ANTIBIOTICS) [facility] IODIDES [facility] SULFASALAZINE [facility] Codeine [facility] Medications date description facility 2015-12-12 00:00:00 Cephalexin 500 MG Oral Capsule [facility] [Keflex] 2015-12-12 00:00:00 Amitriptyline Hydrochloride 10 MG [facility] Oral Tablet 2015-12-12 00:00:00 Acetaminophen 325 MG / Hydrocodone [facility] Bitartrate 5 MG Oral Tablet 2015-12-12 00:00:00 Losartan Potassium 50 MG Oral Counts Include 234 Beds At [facility] Tablet 2015-12-15 00:00:00 null [facility] [address] 2015-12-15 00:00:00 null [facility] [address] 2015-12-15 00:00:00 null [facility] [address] 2015-12-15 00:00:00 null [facility] [address] 2015-12-15 00:00:00 null [facility] [address] 2015-12-15 00:00:00 null [facility] [address] 2015-12-15 00:00:00 null [facility] [address] 2015-12-15 00:00:00 null [facility] [address] 2015-12-15 00:00:00 null [facility] [address] 2015-12-15 00:00:00 null [facility] [address] 2015-12-15 00:00:00 null [facility] [address] 2015-12-15 00:00:00 null [facility] [address] 2015-12-15 00:00:00 LOSARTAN POTASSIUM [facility] [address] 2015-12-15 00:00:00 CEPHALEXIN [facility] [address] 2015-12-15 00:00:00 NADOLOL [facility] [address] 2015-12-15 00:00:00 AMITRIPTYLINE HCL [facility] [address] 2015-12-15 00:00:00 HYDROCODONE-ACETAMINOPHEN [facility] [address] 2015-12-15 00:00:00 NADOLOL [facility] [address] 2015-12-15 00:00:00 IBUPROFEN [facility] [address] 2015-12-15 00:00:00 HYDROCODONE-ACETAMINOPHEN [facility] [address] 2015-12-15 00:00:00 IBUPROFEN [facility] [address] 2015-12-15 00:00:00 AMITRIPTYLINE HCL [facility] [address] 2015-12-15 00:00:00 LOSARTAN POTASSIUM [facility] [address] 2015-12-15 00:00:00 CEPHALEXIN [facility] [address] 2015-12-15 00:00:00 IBUPROFEN [facility] [address] 2015-12-15 00:00:00 NADOLOL [facility] [address] 2015-12-15 00:00:00 AMITRIPTYLINE HCL [facility] [address] 2015-12-15 00:00:00 HYDROCODONE-ACETAMINOPHEN [facility] [address] 2015-12-15 00:00:00 LOSARTAN POTASSIUM [facility] [address] 2015-12-15 00:00:00 CEPHALEXIN [facility] [address] 2015-12-15 00:00:00 NADOLOL [facility] [address] 2015-12-15 00:00:00 HYDROCODONE-ACETAMINOPHEN [facility] [address] 2015-12-15 00:00:00 IBUPROFEN [facility] [address] 2015-12-15 00:00:00 AMITRIPTYLINE HCL [facility] [address] 2015-12-15 00:00:00 LOSARTAN POTASSIUM [facility] [address] 2015-12-15 00:00:00 CEPHALEXIN [facility] [address] 2015-12-15 00:00:00 IBUPROFEN [facility] [address] 2015-12-15 00:00:00 NADOLOL [facility] [address] 2015-12-15 00:00:00 AMITRIPTYLINE HCL [facility] [address] 2015-12-15 00:00:00 HYDROCODONE-ACETAMINOPHEN [facility] [address] 2015-12-15 00:00:00 LOSARTAN POTASSIUM [facility] [address] 2015-12-15 00:00:00 null [facility] 2015-12-15 00:00:00 null [facility] 2015-12-15 00:00:00 null [facility] 2015-12-15 00:00:00 null [facility] 2015-12-15 00:00:00 null [facility] 2015-12-15 00:00:00 null [facility] 2015-12-15 00:00:00 null [facility] 2015-12-15 00:00:00 null [facility] 2015-12-15 00:00:00 null [facility] 2015-12-15 00:00:00 null [facility] 2015-12-15 00:00:00 null [facility] 2015-12-15 00:00:00 null [facility] 2015-12-15 00:00:00 LOSARTAN POTASSIUM [facility] 2015-12-15 00:00:00 CEPHALEXIN [facility] 2015-12-15 00:00:00 NADOLOL [facility] 2015-12-15 00:00:00 AMITRIPTYLINE HCL [facility] 2015-12-15 00:00:00 HYDROCODONE-ACETAMINOPHEN [facility] 2015-12-15 00:00:00 IBUPROFEN [facility] 2015-12-15 00:00:00 CEPHALEXIN [facility] 2015-12-15 00:00:00 IBUPROFEN [facility] 2015-12-15 00:00:00 NADOLOL [facility] 2015-12-15 00:00:00 AMITRIPTYLINE HCL [facility] 2015-12-15 00:00:00 HYDROCODONE-ACETAMINOPHEN [facility] 2015-12-15 00:00:00 LOSARTAN POTASSIUM [facility] 2015-12-15 00:00:00 null [facility] 2015-12-15 00:00:00 null [facility] 2015-12-15 00:00:00 null [facility] 2015-12-15 00:00:00 null [facility] 2015-12-15 00:00:00 null [facility] 2015-12-15 00:00:00 null [facility] 2015-12-15 00:00:00 null [facility] 2015-12-15 00:00:00 null [facility] 2015-12-15 00:00:00 null [facility] 2015-12-15 00:00:00 null [facility] 2015-12-15 00:00:00 null [facility] 2015-12-15 00:00:00 null [facility] 2015-12-15 00:00:00 LOSARTAN POTASSIUM [facility] 2015-12-15 00:00:00 CEPHALEXIN [facility] 2015-12-15 00:00:00 NADOLOL [facility] 2015-12-15 00:00:00 AMITRIPTYLINE HCL [facility] 2015-12-15 00:00:00 HYDROCODONE-ACETAMINOPHEN [facility] 2015-12-15 00:00:00 IBUPROFEN [facility] 2015-12-15 00:00:00 CEPHALEXIN [facility] 2015-12-15 00:00:00 IBUPROFEN [facility] 2015-12-15 00:00:00 NADOLOL [facility] 2015-12-15 00:00:00 AMITRIPTYLINE HCL [facility] 2015-12-15 00:00:00 HYDROCODONE-ACETAMINOPHEN [facility] 2015-12-15 00:00:00 LOSARTAN POTASSIUM [facility] 2016-01-13 00:00:00 null [facility] 2016-01-13 00:00:00 null [facility] 2016-01-13 00:00:00 CELECOXIB [facility] 2016-01-13 00:00:00 CELECOXIB [facility] 2016-01-13 00:00:00 CELECOXIB [facility] 2016-01-13 00:00:00 CELECOXIB [facility] 2016-01-13 00:00:00 CELECOXIB [facility] 2016-01-13 00:00:00 null [facility] 2016-01-13 00:00:00 null [facility] 2016-01-13 00:00:00 CELECOXIB [facility] 2016-01-13 00:00:00 CELECOXIB [facility] 2016-01-13 00:00:00 null [facility] 2016-01-13 00:00:00 null [facility] 2016-01-13 00:00:00 CELECOXIB [facility] 2016-01-13 00:00:00 CELECOXIB [facility] 2016-02-16 00:00:00 null [facility] 2016-02-16 00:00:00 null [facility] 2016-02-16 00:00:00 null [facility] 2016-02-16 00:00:00 null [facility] 2016-02-16 00:00:00 null [facility] 2016-02-16 00:00:00 null [facility] 2016-02-16 00:00:00 NAPROXEN SODIUM [facility] 2016-02-16 00:00:00 HYDROCODONE-ACETAMINOPHEN [facility] 2016-02-16 00:00:00 SULFAMETHOXAZOLE-TRIMETHOPRIM [facility] 2016-02-16 00:00:00 NAPROXEN SODIUM [facility] 2016-02-16 00:00:00 HYDROCODONE-ACETAMINOPHEN [facility] 2016-02-16 00:00:00 SULFAMETHOXAZOLE-TRIMETHOPRIM [facility] 2016-02-16 00:00:00 NAPROXEN SODIUM [facility] 2016-02-16 00:00:00 HYDROCODONE-ACETAMINOPHEN [facility] 2016-02-16 00:00:00 SULFAMETHOXAZOLE-TRIMETHOPRIM [facility] 2016-02-16 00:00:00 NAPROXEN SODIUM [facility] 2016-02-16 00:00:00 HYDROCODONE-ACETAMINOPHEN [facility] 2016-02-16 00:00:00 SULFAMETHOXAZOLE-TRIMETHOPRIM [facility] 2016-02-16 00:00:00 NAPROXEN SODIUM [facility] 2016-02-16 00:00:00 HYDROCODONE-ACETAMINOPHEN [facility] 2016-02-16 00:00:00 null [facility] 2016-02-16 00:00:00 null [facility] 2016-02-16 00:00:00 null [facility] 2016-02-16 00:00:00 null [facility] 2016-02-16 00:00:00 null [facility] 2016-02-16 00:00:00 null [facility] 2016-02-16 00:00:00 NAPROXEN SODIUM [facility] 2016-02-16 00:00:00 HYDROCODONE-ACETAMINOPHEN [facility] 2016-02-16 00:00:00 SULFAMETHOXAZOLE-TRIMETHOPRIM [facility] Include [facility] 2016-02-16 00:00:00 SULFAMETHOXAZOLE-TRIMETHOPRIM Counts Include [facility] 2016-02-16 00:00:00 NAPROXEN SODIUM [facility] 2016-02-16 00:00:00 HYDROCODONE-ACETAMINOPHEN [facility] 2016-02-16 00:00:00 null [facility] 2016-02-16 00:00:00 null [facility] 2016-02-16 00:00:00 null [facility] 2016-02-16 00:00:00 null [facility] 2016-02-16 00:00:00 null [facility] 2016-02-16 00:00:00 null [facility] 2016-02-16 00:00:00 NAPROXEN SODIUM [facility] 2016-02-16 00:00:00 HYDROCODONE-ACETAMINOPHEN [facility] 2016-02-16 00:00:00 SULFAMETHOXAZOLE-TRIMETHOPRIM Counts Include [facility] 2016-02-16 00:00:00 SULFAMETHOXAZOLE-TRIMETHOPRIM Counts Include [facility] 2016-02-16 00:00:00 [facility] 2016-02-16 00:00:00 HYDROCODONE-ACETAMINOPHEN [facility] 2016-10-19 00:00:00 Nadolol 20 MG Oral Tablet [facility] 2016-10-19 00:00:00 Nadolol 20 MG Oral Tablet [facility] 2016-12-21 00:00:00 null [facility] 2016-12-21 00:00:00 null [facility] 2016-12-21 00:00:00 null [facility] 2016-12-21 00:00:00 null [facility] 2016-12-21 00:00:00 null [facility] 2016-12-21 00:00:00 null [facility] 2016-12-21 00:00:00 MELOXICAM [facility] 2016-12-21 00:00:00 MECLIZINE HCL [facility] 2016-12-21 00:00:00 MECLIZINE HCL [facility] 2016-12-21 00:00:00 OMEPRAZOLE [facility] 2016-12-21 00:00:00 OMEPRAZOLE [facility] 2016-12-21 00:00:00 MELOXICAM [facility] 2016-12-21 00:00:00 MELOXICAM [facility] 2016-12-21 00:00:00 OMEPRAZOLE [facility] 2016-12-21 00:00:00 MECLIZINE HCL [facility] 2016-12-21 00:00:00 MECLIZINE HCL [facility] 2016-12-21 00:00:00 OMEPRAZOLE [facility] 2016-12-21 00:00:00 MELOXICAM [facility] 2016-12-21 00:00:00 MELOXICAM [facility] 2016-12-21 00:00:00 OMEPRAZOLE [facility] 2016-12-21 00:00:00 MECLIZINE HCL [facility] 2016-12-21 00:00:00 null [facility] 2016-12-21 00:00:00 null [facility] 2016-12-21 00:00:00 null [facility] 2016-12-21 00:00:00 null [facility] 2016-12-21 00:00:00 null [facility] 2016-12-21 00:00:00 null [facility] 2016-12-21 00:00:00 MELOXICAM [facility] 2016-12-21 00:00:00 MECLIZINE HCL [facility] 2016-12-21 00:00:00 OMEPRAZOLE [facility] 2016-12-21 00:00:00 MELOXICAM [facility] 2016-12-21 00:00:00 MECLIZINE HCL [facility] 2016-12-21 00:00:00 null [facility] 2016-12-21 00:00:00 null [facility] 2016-12-21 00:00:00 null [facility] 2016-12-21 00:00:00 null [facility] 2016-12-21 00:00:00 null [facility] 2016-12-21 00:00:00 null [facility] 2016-12-21 00:00:00 MELOXICAM [facility] 2016-12-21 00:00:00 MECLIZINE HCL [facility] 2016-12-21 00:00:00 OMEPRAZOLE [facility] 2016-12-21 00:00:00 MELOXICAM [facility] 2016-12-21 00:00:00 MECLIZINE HCL [facility] 2017-03-05 00:00:00 null [facility] 2017-03-05 00:00:00 null [facility] 2017-03-05 00:00:00 null [facility] 2017-03-05 00:00:00 null [facility] 2017-03-05 00:00:00 METHYLPREDNISOLONE [facility] 2017-03-05 00:00:00 METHOCARBAMOL [facility] 2017-03-05 00:00:00 METHYLPREDNISOLONE [facility] 2017-03-05 00:00:00 METHOCARBAMOL [facility] 2017-03-05 00:00:00 METHOCARBAMOL [facility] 2017-03-05 00:00:00 METHOCARBAMOL [facility] 2017-03-05 00:00:00 METHYLPREDNISOLONE [facility] 2017-03-05 00:00:00 METHYLPREDNISOLONE [facility] 2017-03-05 00:00:00 METHOCARBAMOL [facility] 2017-03-05 00:00:00 METHOCARBAMOL [facility] 2017-03-05 00:00:00 METHYLPREDNISOLONE [facility] 2017-03-05 00:00:00 null [facility] 2017-03-05 00:00:00 null [facility] 2017-03-05 00:00:00 null [facility] 2017-03-05 00:00:00 null [facility] 2017-03-05 00:00:00 METHYLPREDNISOLONE [facility] 2017-03-05 00:00:00 METHOCARBAMOL [facility] 2017-03-05 00:00:00 METHOCARBAMOL [facility] 2017-03-05 00:00:00 METHYLPREDNISOLONE [facility] 2017-03-05 00:00:00 null [facility] 2017-03-05 00:00:00 null [facility] 2017-03-05 00:00:00 null [facility] 2017-03-05 00:00:00 null [facility] 2017-03-05 00:00:00 METHYLPREDNISOLONE [facility] 2017-03-05 00:00:00 METHOCARBAMOL [facility] 2017-03-05 00:00:00 METHOCARBAMOL [facility] 2017-03-05 00:00:00 METHYLPREDNISOLONE [facility] 2017-04-26 00:00:00 null [facility] 2017-04-26 00:00:00 null [facility] 2017-04-26 00:00:00 OMEPRAZOLE [facility] 2017-04-26 00:00[facility]00 [facility] 2017-04-26 00:00:00 [facility] 2017-04-26 00:00:00 [facility] 2017-04-26 00:00:00 [facility]OLE [facility] 2017-04-26 00:00:00 [facility] 2018-04-07 00:00:00 Naproxen sodium 220 MG [facility] 2018-04-07 00:00:00 Methocarbamol 500 MG Oral Tablet [facility] 2018-04-07 00:00:00 Acetaminophen 500 MG Oral Tablet [facility] 2018-04-07 00:00:00 Losartan Potassium 50 MG Oral [facility] Tablet 2018-04-07 00:00:00 Naproxen sodium 220 MG Oral [facility] spital Capsule 2018-04-07 00:00:00 Methocarbamol 500 MG Oral Tablet [facility] 2018-04-07 00:00:00 Acetaminophen 500 MG Oral Tablet [facility] 2018-04-07 00:00:00 Losartan Potassium 50 MG Oral [facility] Tablet 2018-04-15 00:00:[address] [facility] 2018-04-15 [facility]:00:[facility] 2018-04-15 00:00:00 HYDROCODONE-ACETAMINOPHEN [facility] 2018-04-15 00:00:00 HYDROCODONE-ACETAMINOPHEN [facility] 2018-04-15 [facility]:00[facility] 2018-04-15 00[facility]00:00 [facility] 2018-04-15 00:00:00 HYDROCODONE-ACETAMINOPHEN [facility] 2018-04-15 00:00:00 HYDROCODONE-ACETAMINOPHEN [facility] 2018-04-15 00:00:00 [facility] 2018-04-15 00:00:00 null [facility] 2018-04-15 00:00:00 HYDROCODONE-ACETAMINOPHEN [facility] 2018-04-15 00:00:00 HYDROCODONE-ACETAMINOPHEN [facility] 2018-04-26 00:00:00 Oxycodone Hydrochloride 10 MG [facility] 2018-04-26 00:00:00 Docusate Sodium 100 MG [facility] 2018-04-26 00:00:00 Oxycodone Hydrochloride 10 MG [facility] 2018-04-26 00:00:00 Docusate Sodium 100 MG [facility] 2018-04-28 00:00:00 Oxycodone Hydrochloride 10 MG Oral [facility] Tablet 2018-04-28 00:00:00 Methocarbamol 500 MG Oral Tablet [facility] 2018-04-28 00:00:00 Oxycodone Hydrochloride 10 MG Oral [facility] Tablet 2018-04-28 00:00:00 Methocarbamol 500 MG Oral Tablet [facility] 2018-06-06 00:00:00 [facility] 2018-06-06 00:00:00 null [facility] 2018-06-06 00:00:00 null [facility] 2018-06-06 00:00:00 null [facility] 2018-06-06 00:00:00 TRAMADOL HCL [facility] 2018-06-06 00:00:00 HYDROXYZINE HCL [facility] 2018-06-06 00:00:00 null [facility] 2018-06-06 00:00:00 null [facility] 2018-06-06 00:00:00 TRAMADOL HCL [facility] 2018-06-06 00:00:00 HYDROXYZINE HCL [facility] 2018-06-06 00:00:00 null [facility] 2018-06-06 00:00:00 null [facility] 2018-06-06 00:00:00 null [facility] 2018-06-06 00:00:00 null [facility] 2018-06-06 00:00:00 TRAMADOL HCL [facility] 2018-06-06 00:00:00 HYDROXYZINE HCL [facility] 2018-06-06 00:00:00 null [facility] 2018-06-06 00:00:00 null [facility] 2018-06-06 00:00:00 TRAMADOL HCL [facility] 2018-06-06 00:00:00 HYDROXYZINE HCL [facility] 2018-06-06 00:00:00 null [facility] 2018-06-06 00:00:00 null [facility] 2018-06-06 00:00:00 null [facility] 2018-06-06 00:00:00 null [facility] 2018-06-06 00:00:00 TRAMADOL HCL [facility] 2018-06-06 00:00:00 HYDROXYZINE HCL [facility] 2018-06-06 00:00:00 null [facility] 2018-06-06 00:00:00 null [facility] 2018-06-06 00:00:00 TRAMADOL HCL [facility] 2018-06-06 00:00:00 HYDROXYZINE HCL [facility] 2018-08-13 00:00:00 null [facility] 2018-08-13 00:00:00 null [facility] 2018-08-13 00:00:00 null [facility] 2018-08-13 00:00:00 null [facility] 2018-08-13 00:00:00 FLUTICASONE PROPIONATE [facility] 2018-08-13 00:00:00 AMOXICILLIN-POT CLAVULANATE [facility] 2018-08-13 00:00:00 FLUTICASONE PROPIONATE [facility] 2018-08-13 00:00:00 AMOXICILLIN-POT CLAVULANATE [facility] 2018-08-13 00:00:00 null [facility] 2018-08-13 00:00:00 null [facility] 2018-08-13 00:00:00 null [facility] 2018-08-13 00:00:00 null [facility] 2018-08-13 00:00:00 FLUTICASONE PROPIONATE [facility] 2018-08-13 00:00:00 AMOXICILLIN-POT CLAVULANATE [facility] 2018-08-13 00:00:00 FLUTICASONE PROPIONATE [facility] 2018-08-13 00:00:00 AMOXICILLIN-POT CLAVULANATE [facility] 2018-08-13 00:00:00 null [facility] 2018-08-13 00:00:00 null [facility] 2018-08-13 00:00:00 null [facility] 2018-08-13 00:00:00 null [facility] 2018-08-13 00:00:00 FLUTICASONE PROPIONATE [facility] 2018-08-13 00:00:00 AMOXICILLIN-POT CLAVULANATE [facility] 2018-08-13 00:00:00 FLUTICASONE PROPIONATE [facility] 2018-08-13 00:00:00 AMOXICILLIN-POT CLAVULANATE [facility] 2018-09-16 00:00:00 null [facility] 2018-09-16 00:00:00 null [facility] 2018-09-16 00:00:00 null [facility] 2018-09-16 00:00:00 null [facility] 2018-09-16 00:00:00 null [facility] 2018-09-16 00:00:00 null [facility] 2018-09-16 00:00:00 AMOXICILLIN-POT CLAVULANATE [facility] 2018-09-16 00:00:00 BENZONATATE [facility] 2018-09-16 00:00:00 ALBUTEROL SULFATE [facility] 2018-09-16 00:00:00 BENZONATATE [facility] 2018-09-16 00:00:00 AMOXICILLIN-POT CLAVULANATE [facility] 2018-09-16 00:00:00 ALBUTEROL SULFATE [facility] 2018-09-16 00:00:00 null [facility] 2018-09-16 00:00:00 null [facility] 2018-09-16 00:00:00 null [facility] 2018-09-16 00:00:00 null [facility] 2018-09-16 00:00:00 null [facility] 2018-09-16 00:00:00 null [facility] 2018-09-16 00:00:00 AMOXICILLIN-POT CLAVULANATE [facility] 2018-09-16 00:00:00 BENZONATATE [facility] 2018-09-16 00:00:00 ALBUTEROL SULFATE [facility] 2018-09-16 00:00:00 BENZONATATE [facility] 2018-09-16 00:00:00 AMOXICILLIN-POT CLAVULANATE [facility] 2018-09-16 00:00:00 ALBUTEROL SULFATE [facility] 2018-09-16 00:00:00 null [facility] 2018-09-16 00:00:00 null [facility] 2018-09-16 00:00:00 null [facility] 2018-09-16 00:00:00 null [facility] 2018-09-16 00:00:00 null [facility] 2018-09-16 00:00:00 null [facility] 2018-09-16 00:00:00 AMOXICILLIN-POT CLAVULANATE [facility] 2018-09-16 00:00:00 BENZONATATE [facility] 2018-09-16 00:00:00 ALBUTEROL SULFATE [facility] 2018-09-16 00:00:00 BENZONATATE [facility] 2018-09-16 00:00:00 AMOXICILLIN-POT CLAVULANATE [facility] 2018-09-16 00:00:00 ALBUTEROL SULFATE [facility] 2018-12-04 00:00:00 null [facility] 2018-12-04 00:00:00 null [facility] 2018-12-04 00:00:00 MECLIZINE HCL [facility] 2018-12-04 00:00:00 MECLIZINE HCL [facility] 2018-12-04 00:00:00 null [facility] 2018-12-04 00:00:00 null [facility] 2018-12-04 00:00:00 MECLIZINE HCL [facility] 2018-12-04 00:00:00 MECLIZINE HCL [facility] 2019 00:00:00 null [facility] 2019 00:00:00 null [facility] 2019 00:00:00 LOSARTAN POTASSIUM [facility] 2019 00:00:00 LOSARTAN POTASSIUM [facility] 2019 00:00:00 null [facility] 2019 00:00:00 null [facility] 2019 00:00:00 LOSARTAN POTASSIUM [facility] 2019 00:00:00 LOSARTAN POTASSIUM [facility] 2019-03-07 00:00:00 null [facility] 2019-03-07 00:00:00 null [facility] 2019-03-07 00:00:00 HYDROCODONE-ACETAMINOPHEN [facility] 2019-03-07 00:00:00 HYDROCODONE-ACETAMINOPHEN [facility] 2019-03-07 00:00:00 null [facility] 2019-03-07 00:00:00 null [facility] 2019-03-07 00:00:00 HYDROCODONE-ACETAMINOPHEN [facility] 2019-03-07 00:00:00 HYDROCODONE-ACETAMINOPHEN [facility] 2019-03-22 00:00:00 Acetaminophen 325 MG / [facility] 5 [facility] Oral Tablet 2019-03-22 00:00:00 Acetaminophen 325 MG / Hydrocodone [facility] Bitartrate 5 MG Oral Tablet 2019-05-13 00:00:00 [facility] 2019-05-13 00:00:00 null [facility] 2019-05-13 00:00:00 null [facility] 2019-05-13 00:00:00 null [facility] 2019-05-13 00:00:00 FLUTICASONE-SALMETEROL [facility] 2019-05-13 00:00:00 BENZONATATE [facility] 2019-05-13 00:00:00 BENZONATATE [facility] 2019-05-13 00:00:00 FLUTICASONE-SALMETEROL [facility] 2019-05-13 00:00:00 null [facility] 2019-05-13 00:00:00 null [facility] 2019-05-13 00:00:00 null [facility] 2019-05-13 00:00:00 null [facility] 2019-05-13 00:00:00 FLUTICASONE-SALMETEROL [facility] 2019-05-13 00[facility]00:00 [facility] 2019-05-13 00:00[facility] 2019-05-13 00:00:00 FLUTICASONE-SALMETEROL [facility] [facility] 2019-07-14 [facility] 2019[facility]-14 [facility] 2019[facility]14 [facility] 2020-02-18 00[facility]00[facility]00 [facility] 2020-02-18 00:00:00 [facility] 2020-02-18 00:00:00 NA SULFATE[facility]K [facility] 2020-02-18 00:00:00 NA [facility]UL[facility]ATE[facility] 2020-02-18 00:00:00 [facility] 2020-02-18 [facility] 2020-02-18 00:00:00 NA SULFATE-K SULFATE-MG SULF [facility] 2020-02-18 00:00:00 NA SULFATE-K SULFATE-MG SULF [facility] 2020-02-24 00:00:00 Methocarbamol 750 MG Oral Tablet [facility] 2020-02-24 00:00:00 Nadolol 20 MG Oral Tablet [facility] 2020-03-17 [facility] 2020-[facility] 2020-03-17 00:00:00 null [facility] 2020-03-17 00:00:00 null [facility] 2020-03-17 00:00:00 null [facility] 2020-03-17 00:00:00 null [facility] 2020-03-17 00:00:00 KETOCONAZOLE [facility] 2020-03-17 00:00:00 HYDROCORTISONE [facility] 2020-03-17 00:00:00 KETOCONAZOLE-[facility]OCORTISONE [facility] 2020-03-17 00:00:00 HYDROCORTISONE [facility] 2020-03-17 00:00:00 KETOCONAZOLE [facility] 2020-03-17 00:00:00 null [facility] 2020-03-17 00:00:00 null [facility] 2020-03-17 00:00:00 null [facility] 2020-03-17 00:00:00 null [facility] 2020-03-17 00:00:00 null [facility] 2020-03-17 00:00:00 null [facility] 2020-03-17 00:00:00 KETOCONAZOLE [facility] 2020-03-17 00:00:00 HYDROCORTISONE [facility] 2020-03-17 00:00:00 KETOCONAZOLE-HYDROCORTISONE [facility] 2020-03-17 00:00:00 HYDROCORTISONE [facility] 2020-03-17 00:00:00 KETOCONAZOLE [facility] 2020-04-12 00:00:00 [facility]ron [facility] 2020-04-13 00:00:00 [facility] 2020-04-13 00:00:00 CIP[facility]OXACIN HCL [facility] 2020-04-13 00:00:00 [facility]ACIN [facility] 2020-04-13 00:00:00 null [facility] 2020-04-13 00:00:00 [facility] 2020-04-13 00:00:00 CIPROFLOXACIN HCL [facility] 2020-04-13 00:00:00 CIPROFLOXACIN HCL [facility] 2020-04-14 00:00:00 Ciprofloxacin 500 MG Oral Tablet [facility] [Cipro] 2020-07-13 00:00:00 null [facility] 2020-08-04 00:00:00 [facility] 2020-08-04 00:00:00 [facility] 2020-08-04 00:00:00 null [facility] 2020-08-04 00:00:00 null [facility] 2020-08-04 [facility]:00[facility] 2020-08-04 00:00:00 LOSARTAN POTASSIUM-HCTZ [facility] 2020-08-04 00:00:00 GABAPENTIN CAPS [facility] 2020-08-04 [facility]:00[facility] 2020-08-04 00:00:00 [facility]ENTIN [facility] 2020-08-04 00:00:00 LOSARTAN POTASSIUM-HCTZ [facility] 2020-08-08 00:00:00 null [facility] 2020-08-08 00:00:00 null [facility] 2020-08-08 00:00:00 FERROUS SULFATE [facility] Procedures date description facility 2015-12-15 00:00:00 TSH w/reflex to FT4, if [facility] [address] date description facility 2015-12-15 00:00:00 CMP [facility] [address] date description facility 2015-12-15 00:00:00 LIPIDS [facility] [address] date description facility 2015-12-15 00:00:00 CBCDP [facility] [address] date description facility 2015-12-15 00:00:00 [facility] [address] date description facility 2015-12-15 00:00:00 TSH w/reflex to FT4, if [facility] [address] date description facility 2015-12-15 00:00:00 CMP [facility] [address] date description facility 2015-12-15 00:00:00 LIPIDS [facility] [address] date description facility 2015-12-15 00:00:00 CBCDP [facility] [address] date description facility 2015-12-15 00:00:00 [facility] [address] date description facility 2015-12-15 00:00:00 TSH w/reflex to FT4, if [facility] date description facility 2015-12-15 00:00:00 CMP [facility] date description facility 2015-12-15 00:00:00 LIPIDS [facility] date description facility 2015-12-15 00:00:00 CBCDP [facility] date description facility 2015-12-15 00:00:00 [facility] date description facility 2015-12-15 00:00:00 TSH w/reflex to FT4, if [facility] date description facility 2015-12-15 00:00:00 CMP [facility] date description facility 2015-12-15 00:00:00 LIPIDS [facility] date description facility 2015-12-15 00:00:00 CBCDP [facility] date description facility 2015-12-15 00:00:00 [facility] date description facility 2016-01-13 00:00:00 Knee 3V [facility] [address] date description facility 2016-01-13 00:00:00 [facility] [address] date description facility 2016-01-13 00:00:00 Knee 3V [facility] [address] date description facility 2016-01-13 00:00:00 [facility] [address] date description facility 2016-01-13 00:00:00 Knee 3V [facility] date description facility 2016-01-13 00:00:00 [facility] date description facility 2016-01-13 00:00:00 Knee 3V [facility] date description facility 2016-01-13 00:00:00 [facility] date description facility 2016-04-12 00:00:00 TSH w/reflex to FT4, if [facility] [address] date description facility 2016-04-12 00:00:00 CMP [facility] [address] date description facility 2016-04-12 00:00:00 CBCDP [facility] [address] date description facility 2016-04-12 00:00:00 Sed Rate Non-Auto [facility] [address] date description facility 2016-04-12 00:00:00 [facility] [address] date description facility 2016-04-12 00:00:00 TSH w/reflex to FT4, if [facility] [address] date description facility 2016-04-12 00:00:00 CMP [facility] [address] date description facility 2016-04-12 00:00:00 CBCDP [facility] [address] date description facility 2016-04-12 00:00:00 Sed Rate Non-Auto [facility] [address] date description facility 2016-04-12 00:00:00 [facility] [address] date description facility 2016-04-12 00:00:00 TSH w/reflex to FT4, if [facility] date description facility 2016-04-12 00:00:00 CMP [facility] date description facility 2016-04-12 00:00:00 CBCDP [facility] date description facility 2016-04-12 00:00:00 Sed Rate Non-Auto [facility] date description facility 2016-04-12 00:00:00 [facility] date description facility 2016-04-12 00:00:00 TSH w/reflex to FT4, if [facility] date description facility 2016-04-12 00:00:00 CMP [facility] date description facility 2016-04-12 00:00:00 CBCDP [facility] date description facility 2016-04-12 00:00:00 Sed Rate Non-Auto [facility] date description facility 2016-04-12 00:00:00 [facility] date description facility 2016-12-21 00:00:00 ENT Consultation [facility] [address] date description facility 2016-12-21 00:00:00 [facility] [address] date description facility 2016-12-21 00:00:00 ENT Consultation [facility] date description facility 2016-12-21 00:00:00 [facility] date description facility 2016-12-21 00:00:00 ENT Consultation [facility] date description facility 2016-12-21 00:00:00 [facility] date description facility 2017-01-10 00:00:00 MM SCR DIGITAL BILAT [facility] [address] date description facility 2017-01-10 00:00:00 [facility] [address] date description facility 2017-01-10 00:00:00 MM SCR DIGITAL BILAT [facility] [address] date description facility 2017-01-10 00:00:00 [facility] [address] date description facility 2017-01-10 00:00:00 MM SCR DIGITAL BILAT [facility] date description facility 2017-01-10 00:00:00 [facility] date description facility 2017-01-10 00:00:00 MM SCR DIGITAL BILAT [facility] date description facility 2017-01-10 00:00:00 [facility] date description facility 2017-03-05 00:00:00 LUMBAR SPINE 2 [facility] 3 [facility] [address] date description facility 2017-03-05 00:00:00 MRI LUMBAR SPINE W/O CONTRAST Counts Include [facility] [address] date description facility 2017-03-05 00:00:00 [facility] [address] date description facility 2017-03-05 00:00:00 LUMBAR SPINE 2 OR 3 [facility]IEW [facility] date description facility 2017-03-05 00:00:00 MRI LUMBAR SPINE W/O CONTRAST Counts Include [facility] [address] date description facility 2017-03-05 00:00:00 [facility] [address] date description facility 2017-03-05 00:00:00 LUMBAR SPINE 2 OR 3 VIEW [facility] date description facility 2017-03-05 00:00:00 MRI LUMBAR SPINE W/O CONTRAST Counts Include [facility] date description facility 2017-03-05 00:00:00 [facility] date description facility 2017-03-05 00:00:00 LUMBAR SPINE 2 OR 3 VIEW [facility] date description facility 2017-03-05 00:00:00 MRI LUMBAR SPINE W/O CONTRAST Counts Include [facility] date description facility 2017-03-05 00:00:00 [facility] date description facility 2017-05-02 00:00:00 NCV/EMG [facility] [address] date description facility 2017-05-02 00:00:00 [facility] [address] date description facility 2017-05-02 00:00:00 NCV/EMG [facility] date description facility 2017-05-02 00:00:00 [facility] date description facility 2017-05-02 00:00:00 NCV/EMG [facility] date description facility 2017-05-02 00:00:00 [facility] date description facility 2017-05-03 00:00:00 CERVICAL SPINE 2 OR 3 VW [facility] [address] date description facility 2017-05-03 00:00:00 [facility] [address] date description facility 2017-05-03 00:00:00 CERVICAL SPINE 2 OR 3 VW [facility] date description facility 2017-05-03 00:00:00 [facility] date description facility 2017-05-03 00:00:00 CERVICAL SPINE 2 OR 3 VW [facility] date description facility 2017-05-03 00:00:00 [facility] date description facility 2018-04-15 00:00:00 RIBS UNILATERAL 2 VIEW [facility] [address] date description facility 2018-04-15 00:00:00 [facility] [address] date description facility 2018-04-15 00:00:00 RIBS UNILATERAL 2 VIEW [facility] date description facility 2018-04-15 00:00:00 [facility] date description facility 2018-04-15 00:00:00 RIBS UNILATERAL 2 VIEW [facility] date description facility 2018-04-15 00:00:00 [facility] date description facility 2018-06-06 00:00:00 Urine C[facility]S [facility] [address] date description facility 2018-06-06 00:00:00 POC URINALYSIS NAUTO W/O SCOPE [facility] [address] date description facility 2018-06-06 00:00:00 First Vx - Ix admin via ID IM [facility] or jet injects without [address] counseling by physician date description facility 2018-06-06 00:00:00 Fluarix Quadrivalent [facility] Intramuscular Suspension 0.[address] steve date description facility 2018-06-06 [facility] [address] [facility] date description [facility] 2018-06-06 00:00:00 [facility] date description facility 2018-06-06 00:00:00 POC URINALYSIS NAUTO W/O SCOPE [facility] date description facility 2018-06-06 00:00:00 First Vx - [facility]x [facility] or jet injects without [facility] counseling by physician date description facility 2018-06-06 00:00:00 Fluarix Quadrivalent [facility] Intramuscular Suspension 0.5 ML [facility] date description facility 2018-06-06 00:00:00 [facility] date description facility 2018-06-06 00:00[facility] description [facility] 2018-06-06 00:00:00 POC URINALYSIS NAUTO W/O SCOPE [facility] date description facility 2018-06-06 00:00:00 First Vx - Ix admin via ID IM Counts Include [facility] or jet injects without [facility] counseling by physician date description facility 2018-06-06 00:00:00 Fluarix Quadrivalent [facility] Intramuscular Suspension 0.5 ML [facility] date description facility 2018-06-06 [facility] description [facility] 2018-08-11 00:00:00 [facility] date description facility 2018-08-11 00:00:00 [facility] date description facility 2018-08-11 00:00:00 [facility] date description facility 2018-08-11 00:00:00 [facility] date description facility 2018-09-16 00:00:00 [facility] [address] [facility] date description facility 2018-09-16 00:00:00 Med Administration [facility] (PO-SL-IN-KS) [address] date description facility 2018-09-16 00:00:00 [facility] [address] date description facility 2018-09-16 00:00:00 [facility] date description facility 2018-09-16 00:00:00 Med Administration [facility] (PO-SL-IN-KS) [facility] date description facility 2018-09-16 00:00:00 [facility] date description facility 2018-09-16 00:00:00 Duoneb [facility] date description facility 2018-09-16 00:00:00 Med [facility] (PO-SL-IN-KS) [facility] date description facility 2018-09-16 00:00:00 [facility] date description facility 2018-12-04 00:00:00 TSH WITH REFLEX TO FT4 [facility] date description facility 2018-12-04 00:00:00 COMPREHENSIVE METABOLIC PANEL Counts Include [facility] date description facility 2018-12-04 00:00:00 LIPID SCREEN, FASTING [facility] date description facility 2018-12-04 00:00:00 HGBA1C [facility] date description facility 2018-12-04 00:00:00 CBC W/Diff/Plt [facility] date description facility 2018-12-04 00:00:00 Physical Therapy [facility] date description facility 2018-12-04 00:00:00 [facility] date description facility 2018-12-04 00:00:00 TSH WITH REFLEX TO FT4 [facility] date description facility 2018-12-04 00:00:00 COMPREHENSIVE METABOLIC PANEL Counts Include [facility] date description facility 2018-12-04 00:00:00 LIPID SCREEN, FASTING [facility] date description facility 2018-12-04 00:00:00 HGBA1C [facility] date description facility 2018-12-04 00:00:00 CBC W/Diff/Plt [facility] date description facility 2018-12-04 00:00:00 [facility] date description facility 2018-12-04 00:00:00 [facility] date description facility 2019-03-07 00:00:00 [id number] - OMT; 1-2 body regions Counts Include [facility] date description facility 2019-03-07 00:00:00 [facility] date description facility 2019-03-07 00:00:00 [id number] - OMT; 1-2 body regions Counts Include [facility] date description facility 2019-03-07 00:00:00 [facility] date description facility 2019-03-09 00:00:00 [id number] - OMT; 1-2 body regions Counts Include [facility] date description facility 2019-03-09 00:00:00 [facility] date description facility 2019-03-09 00:00:00 [id number] - OMT; 1-2 body regions Counts Include [facility] date description facility 2019-03-09 00:00:00 [facility] date description facility 2019-03-22 00:00:00 [facility] date description facility 2019-05-13 00:00:00 CHEST 2 VIEW [facility] date description facility 2019-05-13 00:00:00 [facility] date description facility 2019-05-13 00:00:00 CHEST 2 VIEW [facility] date description facility 2019-05-13 00:00:00 [facility] date description facility 2019-05-14 00:00:00 XR CHEST SPECIAL VIEW(S) [facility] date description facility 2019-05-14 00:00:00 [facility] date description facility 2019-05-14 00:00:00 XR CHEST SPECIAL VIEW(S) [facility] date description facility 2019-05-14 00:00:00 [facility] date description facility 2019-05-15 00:00:00 CT CHEST WO [facility] date description facility 2019-05-15 00:00:00 [facility] date description facility 2019-05-15 00:00:00 CT CHEST WO [facility] date description facility 2019-05-15 00:00:00 [facility] date description facility 2019-07-14 00:00:00 Influenza-Medicare [facility] date description facility 2019-07-14 00:00:00 XR KNEE 3 VIEW [facility] date description facility 2019-07-14 00:00:00 [facility] 2019-07-14 00:00:00 [facility] date description facility 2019-07-14 00:00:00 Influenza-Medicare [facility] date description facility 2019-07-14 00:00:00 XR KNEE 3 VIEW [facility] date description facility 2019-07-14 00:00:00 [facility] description [facility] 2019-07-14 00:00:00 [facility] date description facility 2020-01-05 00:00:00 COMPREHENSIVE METABOLIC PANEL [facility] date description facility 2020-01-05 00:00:00 LIPID SCREEN, FASTING [facility] date description facility 2020-01-05 00:00:00 TSH [facility] date description facility 2020-01-05 00:00:00 CBC W/Diff/Plt [facility] date description facility 2020-01-05 00:00:00 [facility] date description facility 2020-01-05 00:00:00 COMPREHENSIVE METABOLIC PANEL [facility] date description facility 2020-01-05 00:00:00 LIPID SCREEN, FASTING [facility] date description facility 2020-01-05 00:00:00 TSH [facility] date description facility 2020-01-05 00:00:00 CBC W/Diff/Plt [facility] date description facility 2020-01-05 00:00:00 [facility] date description facility 2020-01-07 00:00:00 FIT DNA [facility] date description facility 2020-01-07 00:00:00 [facility] date description facility 2020-01-07 00:00:00 FIT DNA [facility] date description facility 2020-01-07 00:00:00 [facility] date description facility 2020-04-12 00:00:00 [facility] date description facility 2020-04-12 00:00:00 [facility] date description facility 2020-04-12 00:00:00 [facility] date description facility 2020-04-14 00:00:00 [facility] date description facility 2020-08-04 00:00:00 [facility] [employer] [facility] date description facility 2020-08-04 00:00:00 [facility] date description facility 2020-08-04 00:00:00 COMPREHENSIVE METABOLIC PANEL Counts Include 234 [facility] date description facility 2020-08-04 00:00:00 LIPIDS SCREEN [facility] date description facility 2020-08-04 00:00:00 VITAMIN B 12 [facility] date description facility 2020-08-04 00:00:00 Ferritin [facility] date description facility 2020-08-04 00:00:00 Folic Acid [facility] date description facility 2020-08-04 00:00:00 Transferrin [facility] date description facility 2020-08-04 00:00:00 CBC W/Diff/Plt [facility] date description facility 2020-08-04 00:00:[address] [facility] date description facility 2020-08-04 00:00:00 First Vx - Ix admin for [facility] Medicare patients [facility] date description facility 2020-08-04 00:00:00 Inj, Prevnar (Pneumococcal [facility] Vacc[facility]) for children under 5 [facility] yrs, intramuscular date description facility 2020-08-04 00:00:00 SNOMED-CT:[id number] Hx of [facility] date description facility 2020-08-04 00:00:00 [facility] Results Social History date description facility 2015-12-15 00:00:00 Never smoker [facility] [address] date description facility 2016-01-13 00:00:00 Never smoker [facility] [address] date description facility 2018-03-06 00:00:00 Never smoker [facility] date description facility 2018-04-15 00:00:00 Never smoker [facility] [address] date description facility 2018-06-06 00:00:00 Never smoker [facility] date description facility 2018-08-07 00:00:00 Never smoker [facility] [address] date description facility 2018-08-13 00:00:00 Never smoker [facility] date description facility 2018-10-24 00:00:00 Never smoker [facility] date description facility 2018-12-04 00:00:00 Never smoker [facility] date description facility 2018-12-12 00:00:00 Never smoker [facility] date description facility 2019-03-07 00:00:00 Never smoker [facility] date description facility 2019-03-09 00:00:00 Never smoker [facility] date description facility 2019-07-14 00:00:00 Never smoker [facility] date description facility 2019-09-15 00:00:00 Never smoker [facility] date description facility 2019-10-29 00:00:00 Never smoker [facility] date description facility 2020-01-05 00:00:00 Never smoker [facility] date description facility 2020-08-04 00:00:00 Never smoker [facility] Social History date description facility 2015-12-15 00:00:00 Never smoker [facility] [address] date description facility 2016-01-13 00:00:00 Never smoker [facility] [address] date description facility 2018-03-06 00:00:00 Never smoker [facility] date description facility 2018-04-15 00:00:00 Never smoker [facility] [address] date description facility 2018-06-06 00:00:00 Never smoker [facility] date description facility 2018-08-07 00:00:00 Never smoker [facility] date description facility 2018-08-13 00:00:00 Never smoker [facility] date description facility 2018-10-24 00:00:00 Never smoker [facility] date description facility 2018-12-04 00:00:00 Never smoker [facility] date description facility 2018-12-12 00:00:00 Never smoker [facility] date description facility 2019-03-07 00:00:00 Never smoker [facility] date description facility 2019-03-09 00:00:00 Never smoker [facility] date description facility 2019-07-14 00:00:00 Never smoker [facility] date description facility 2019-09-15 00:00:00 Never smoker [facility] date description facility 2019-10-29 00:00:00 Never smoker [facility] date description facility 2020-01-05 00:00:00 Never smoker [facility] date description facility 2020-08-04 00:00:00 Never smoker [facility] date description facility [id number]
== END 2020-08-16 11:02 | disposition home or self-care (01) ==
LOC: SC 11:01
PROVIDERS: ATTEND Nurse Practitioner Family
DX: G47.33 Obstructive sleep apnea (adult) (pediatric) (principal)

== ENCOUNTER 2020-09-07 08:00 | Outpatient (CLI) | payer MEDICARE, OTHER | END 2020-09-07 08:01 | disposition home or self-care (01) | LOC: LAB.R 08:00 | PROVIDERS: ATTEND Physician Assistant Medical | DX: J45.901 Unspecified asthma with (acute) exacerbation (principal); Z20.822 Contact with and (suspected) exposure to COVID-19 ==

== ENCOUNTER 2020-09-08 07:41 | Outpatient (CLI) | payer MEDICARE, OTHER | END 2020-09-08 07:42 | disposition home or self-care (01) | LOC: DI 07:41 | PROVIDERS: ATTEND Internal Medicine | DX: I10 Essential (primary) hypertension (principal) | CPT/HCPCS: 93306 ==

== ENCOUNTER 2020-09-29 12:57 | Outpatient (CLI) | payer MEDICARE, OTHER ==
--- NOTE | 2020-09-29 13:30 | SLEEP CARE CONSULTATION ---
Information from patient questionnaire entered by Karen Langford. I have reviewed and concur with the information entered by Karen Langford. This document represents the service I personally performed and the decisions made by , Gabriella Lloyd ARNP. History of Present Illness Service Date and Time: 09/29/2020 1257 Previous diagnosis: Mild, Obstructive Sleep Apnea-Hypopnea Syndrome AHI: 10.4 (in 2019) Reason for follow up: other (6-week followup - pressure change) Equipment type: CPAP Equipment obtained from: [facility] ([place]; initial supplies received) Mask style: Full face Backup mask available: No (will keep mask once she is able to replace old mask) Last cushion change: almost 3 months Prior sleep studies: Yes Year and Where: 2019 - [facility] ; probably 5 years ago - [facility] Type of Sleep Study: Polysomnography HPI additional information: PO ROMERO was diagnosed to have mild, AHI 10.4, obstructive sleep apnea- hypopnea syndrome and returned today for CPAP therapy 6 week pressure change follow-up. CPAP Compliance Data - Data Reviewed with Patient Average duration of nightly device use: 4 h 59 min Compliance rate %: 90 Current pressure setting (cmH2O): 7-9 Humidity settin Heated hose settin Average residual AHI: 4.0 Average large leak: 1 min 2 sec Subjective Missed days of use due to: reports: illness Patient concerns: reports: dry mouth, nose, throat, other (headache). denies: aerophagia, mask discomfort, air blowing in eyes, mask leak noise, condensation in mask/hose, nasal congestion, epistaxis Observed to snore while using device: No (not sure, lives alone) Current pressure setting perceived as: comfortable On therapy, patient: reports: sleeping better, awakening more refreshed, being more awake and alert during the day, more rested overall. denies: drowsiness while driving Initial Preston Sleepiness Scale score: 10 (in 2019) Current [place] Sleepiness Scale score: 6 Allergies and Home Medications Drug allergies reviewed: Yes (codiene) Home medication list reviewed: Yes (Gabapentin; HCTZ) Review of Systems Review of systems same as previous: No (mild asthma) Physical Exam Heart Rate: 75 O2 Saturation: 100 Height: 5 ft 7 in Weight: 208 lb Body Mass Index: 32.5 BMI Classification: Obese Impression and Plan 1. Obstructive Sleep Apnea-Hypopnea Syndrome, mild, with good treatment compliance and fair apnea control. On CPAP therapy, the patient has better sleep quality and is more rested overall. She has had some mouth dryness and has been drinking water and applying ointments to her lips before bed. Oral dryness can be reduced by adjusting humidity setting higher or heated hose lower or by adjusting both settings. Verbal instructions given on how to change humidity and heated hose settings with rationale explaining why to change. Patient advised that chronic oral dryness can affect dental health. Patient's apnea severity and rationale for treatment to reduce apnea, improve sleep quality and reduce cardiovascular and cerebrovascular events was reviewed. I also reviewed the benefit of consistent device use of CPAP for hypertension and gastric reflux. * Continue auto CPAP pressure at 7-9 cmH2O * Notify me if snoring with mask or feeling that the pressure is too much or too little * Attempt to lose weight * Call this office if any problems using CPAP * Return for follow up in 3 months, or sooner if concerns arise Counseling Topics: Spare mask, Weight loss health impact Visit Type: In Office Time Spent with Patient (minutes): 20 Provider Statement: I spent 100% of the Face to Face Visit with the patient with greater than 50% spent counseling the patient and coordination of care.
== END 2020-09-29 12:58 | disposition home or self-care (01) ==
LOC: SC 12:57
PROVIDERS: ATTEND Nurse Practitioner Family
DX: G47.33 Obstructive sleep apnea (adult) (pediatric) (principal); E66.9 Obesity, unspecified; Z68.32 Body mass index [BMI] 32.0-32.9, adult
CPT/HCPCS: 99213; G0463; 99212

== ENCOUNTER 2020-09-30 08:00 | Outpatient (CLI) | payer MEDICARE, OTHER | END 2020-09-30 23:59 | disposition home or self-care (01) | LOC: LAB.R 08:00 | PROVIDERS: ATTEND Physician Assistant Medical | DX: N30.00 Acute cystitis without hematuria (principal) | CPT/HCPCS: 87086 ==

== ENCOUNTER 2020-10-18 12:50 | Outpatient (CLI) | payer MEDICARE, OTHER | END 2020-10-18 12:51 | disposition home or self-care (01) | LOC: RT 12:50 | PROVIDERS: ATTEND Internal Medicine | DX: J45.909 Unspecified asthma, uncomplicated (principal); R05 Cough | CPT/HCPCS: 94060; 94729 ==

== ENCOUNTER 2020-11-01 08:00 | Outpatient (CLI) | payer MEDICARE, OTHER | END 2020-11-01 23:59 | disposition home or self-care (01) | LOC: LAB.N 08:00 | PROVIDERS: ATTEND Nurse Practitioner | DX: N39.0 Urinary tract infection, site not specified (principal) | CPT/HCPCS: 87086 ==

== ENCOUNTER 2020-11-24 08:00 | Outpatient (CLI) | payer MEDICARE, OTHER | END 2020-11-24 23:59 | disposition home or self-care (01) | LOC: LAB.R 08:00 | PROVIDERS: ATTEND Family Medicine | DX: N39.0 Urinary tract infection, site not specified (principal) | CPT/HCPCS: 87086 ==

== ENCOUNTER → 2021-02-24 | Outpatient (CLI) | payer MEDICARE, OTHER ==
--- NOTE | 2021-02-24 15:56 | XRAY Report ---
PROCEDURE: Cervical Spine 2 View INDICATIONS: SPASMODIC TORTICOLLIS TECHNIQUE: 3 view(s) of the cervical spine were acquired. COMPARISON: X-ray cervical spine, 3 views, 05/06/2017. FINDINGS: Bones: The odontoid view is suboptimal. There is grade 1 anterolisthesis of C4 on C5. No fractures o r dislocations to the C7 level. No suspicious bony lesions. Degenerative disc disease is present, severe at C5-C6, moderate at C6-C7. Bilateral facet arthropathy, most pronounced at C3-C4 and C4-C5 o n the right. Moderate atlantoaxial joint degeneration. Soft tissues: No prevertebral soft tissue swelling. IMPRESSION: 1. Severe degenerative disc and facet disease in cervical spine. 2. Grade 1 anterolisthesis of C4 on C5. 3. Moderate atlantoaxial joint degeneration. 4. Odontoid view is suboptimal. Reviewed by: Derrell Muro MD on 02/24/2021 3:55 PM PDT Approved by: Derrell Muro MD on 02/24/2021 3:55 PM PDT Station ID: [id number]
== END ==
LOC: DI.N 08:54
PROVIDERS: ATTEND Family Medicine
DX: G24.3 Spasmodic torticollis (principal); M47.812 Spondylosis without myelopathy or radiculopathy, cervical region; M50.322 Other cervical disc degeneration at C5-C6 level; M43.12 Spondylolisthesis, cervical region; M47.891 Other spondylosis, occipito-atlanto-axial region

== ENCOUNTER 2021-05-10 12:34 | Outpatient (CLI) | payer MEDICARE, OTHER | END 2021-05-10 12:35 | disposition home or self-care (01) | LOC: COV 12:34 | PROVIDERS: ATTEND Family Medicine | DX: Z20.822 Contact with and (suspected) exposure to COVID-19 (principal) ==